=== PATIENT | male | born 1995 | race Caucasian/White ===

== ENCOUNTER 2024-06-29 15:58 | Inpatient (IN) | payer OTHER, SELFPAY ==
[2024-06-29] VITALS (10 sets, daily range): BP systolic 124–142; BP diastolic 78–91; BMI 21.1; BMI 20.1
--- NOTE | 2024-06-29 14:12 | ED.GENMED ---
History of Present Illness
General
Chief Complaint: Abnormal Lab Value
Time Seen by Provider: 06/29/24 14:01
History of Present Illness
History of Present Illness:
28-year-old male with history of chron's disease presents to the emergency department due to low hemoglobin on outpatient labs. Patient unfortunately had been managing his Crohn's with Remicade however lost insurance and was not able to continue to
receive infusions for several months. Reestablish care with new insurance and outpatient labs are obtained earlier this week showing hemoglobin 7.3. He reports 10-20 episodes of bowel movements daily with weight loss and general fatigue. Denies
any significant abdominal pain at this time
Past History
Past History
ED Past Medical History: Other (Crohns)
ED Past Surgical History: None
Social History
Tobacco: Non-smoker
Alcohol: None
Review of Systems
Review of Systems
Allergies reviewed?: Yes
All Other Systems: ROS reviewed and negative except as documented in HPI and ROS
Phy Exam
Physical Exam
Physical Exam:
GEN: Thin and pale, chronically ill-appearing, no immediate distress
HEENT: Oral mucosa moist, no scleral icterus
Cardiac: Regular rate
Lung: No respiratory distress, no tachypnea
Abdomen: Soft, nontender
MSK: No gross deformity or injuries
Skin: Good color, no pallor or jaundice, no rashes
Neuro: AO x3, moves all extremities freely
Psych: Calm, cooperative
Course
Orders/Labs/Results
Orders:
Orders
06/29/24 13:55
Type And Crossmatch Urgent
Complete Blood Count/With Diff Urgent
Comprehensive Metabolic Panel Urgent
06/29/24 Dinner
Regular
At Your Request: Full Participation
Does patient need a safe tray?: No
Oral Supplement (If unsure of flavor order apple or vanilla): Ensure Enlive Vanilla
Supplement Frequency: TID
06/29/24 15:18
ABO2 Routine
BBK Wristband Number:
06/29/24 15:23
MR Pelvis W/o & With Contrast Routine
Comment:
Reason For Exam: fistulizing large bowel Crohn's
Recent pill cam endoscopy?: No
06/29/24 15:26
Blood Bank Products [* Blood Bank Products] Urgent
Blood Bank Products: *Packed RBC Leuko(PRBC's)
Quantity: 1
Transfuse Today: Yes
Reason: Anemia
06/29/24 15:48
Admit/Transfer Patient As Directed
Co-Sign Provider:
Level of Care: Inpatient admission
Assign to:: Medical/Surgical
Physician / Group: Regino Russ
Diagnosis: Crohn's disease flare up
Reason for Hospitalization: Crohn's disease flare up
Expected length of stay greater than two midnights?: Yes
ELOS- Estimated Length of Stay in days: 3
I certify the patient meets the requirements for IP care: Yes
PRN Pain Medication Management As Directed
May give lesser potent ordered pain med per pt: Yes
preference::
Protocol:: Medication orders for pain may be administered in a
manner that supports deferring to patient preference
when the pt is:
- Requesting an ordered lesser potent pain medication.
Least to most potent pain medications are defined
as: acetaminophen < NSAID < tramadol < opioids
(morphine, oxycodone, hydromorphone).
- Requesting a lesser dose of the same medication IF
ORDERED.
- Requesting a less intrusive route of administration
if both routes are prescribed by the provider (PO <
IV).
06/29/24 15:49
Code Status As Directed
Resuscitation Status: Full Code
06/29/24 16:18
Calprotectin, Fecal [S] Urgent
Date Specimen was Collected: 06/29/24
Time Specimen was Collected: 16:11
STOOL [C difficile Antigen & Toxins] Urgent
LAVERNE Source: Feces/Stool
Specimen Description:
Date Specimen was Collected: 06/29/24
Time Specimen was Collected: 16:11
Stool Culture Urgent
LAVERNE Source: Feces/Stool
Specimen Description:
Date Specimen was Collected: 06/29/24
Time Specimen was Collected: 16:11
Stool For WBC Urgent
LAVERNE Source: Feces/Stool
Specimen Description:
Date Specimen was Collected: 06/29/24
Time Specimen was Collected: 16:11
06/29/24 16:54
Acetaminophen [Tylenol] 650 mg PO Q4HPRN PRN
Lactated Ringers [Lr] 1,000 ml IV 100 mls/hr
Ondansetron Injectable [Zofran] 4 mg IV Q6HPRN PRN
06/29/24 16:54
Activity As Directed
Activity Level: As Tolerated
Vital Signs As Directed
Frequency: Per unit guidelines
DX Deep Vein Thrombosis Video Routine
06/29/24 18:00
Enoxaparin Sodium [Lovenox] 40 mg SC QPM
06/30/24 06:00
Basic Metabolic Panel IN AM
Complete Blood Count/No Diff IN AM
06/30/24 14:00
Ferric Gluconate [Ferrlecit] 125 mg 0.9% Sodium Chloride 100 ml [Nss] 100 ml IV DAILY@1400
07/01/24 06:00
Basic Metabolic Panel IN AM
Complete Blood Count/No Diff IN AM
Abnormal Lab Results
06/29/24
13:55
RBC 3.36 L 10^6/uL
(4.70-6.10)
Hgb 7.3 L g/dL
(13.0-18.0)
Hct 24.4 L %
(39.0-52.0)
MCV 72.6 L fL
(80.0-94.0)
MCH 21.7 L pg
(27.0-31.0)
MCHC 29.9 L g/dL
(33.0-37.0)
RDW 18.3 H %
(11.5-14.5)
Plt Count 877 H 10^3/uL
(130-400)
Abs Immat Gran (auto) 0.1 H 10^3/uL
(0-0.05)
Absolute Lymphs (auto) 0.8 L 10^3/uL
(1.2-3.4)
Absolute Monos (auto) 0.9 H 10^3/uL
(0.1-0.6)
Immature Gran % 0.9 H %
(0-0.5)
Lymphocytes % 14.6 L %
(20.5-51.1)
Monocytes % 16.0 H %
(1.7-9.3)
Sodium 134 L mmol/L
(135-145)
Chloride 97 L mmol/L
(98-107)
Carbon Dioxide 33 H mmol/L
(22-30)
BUN 6 L mg/dl
(9-20)
Calcium 7.8 L mg/dl
(8.4-10.2)
AST 14 L U/L
(17-59)
Total Protein 5.7 L g/dl
(6.3-8.2)
Albumin 2.3 L g/dl
(3.5-5.0)
Crossmatch IS Only See Detail
06/29/24 13:55
06/29/24 13:55
Vital Signs
Initial and Last Documented VS:
Initial Vital Signs
Temp Pulse Resp BP Pulse Ox
98.2 F 111 20 136/90 100
06/29/24 13:18 06/29/24 13:18 06/29/24 13:18 06/29/24 13:18 06/29/24 13:18
Last Documented Vital Signs
Temp Pulse Resp BP Pulse Ox
98.0 F 119 17 142/91 100
06/29/24 17:13 06/29/24 17:13 06/29/24 17:13 06/29/24 17:13 06/29/24 18:11
MDM/Problems Addressed
MDM/Problems Addressed:
Patient will be admitted to the hospitalist service with GI consultation for further management of his Crohn's. Stool studies are ordered as this will dictate potential need for avoidance of IV steroids. Imaging is not obtained in the emergency
department as GIs preference would be for MRI which can be done on an inpatient basis
*Critical Care Note
Total Time (30-74mins, 75-104mins- exclusive of procedures): Not Applicable
ED Attending Note
-
Portions of this chart may have been created with voice recognition software.� Occasional wrong word or��sound alike� substitutions may have occurred due to the inherent limitations of voice recognition software.
Discharge Plan
Departure
Patient Disposition: Admit
Date of Disposition: 06/29/24
Time of Disposition: 15:28
Admit to: Med/Surg
Presentation/result/management discussed w/ accepting MD/DO: Hospitalist
Discharge Problem:
Crohn's colitis, Iron deficiency anemia
Interventions
Interventions:
*Risk Screen - Suicide Last Done: 06/29/24 17:00
*General Assessment Last Done: 06/29/24 13:18
*Neglect/Abuse Screening Last Done: 06/29/24 13:18
ED- Fall Risk Assessment Last Done: 06/29/24 14:11
*ED COVID-19 Vaccine History Last Done: 06/29/24 17:00
*Nursing Disposition Last Done: 06/29/24 16:44
Discharge Date and Time
Discharge Date/Time: 06/29/24 16:44
[2024-06-29 14:16] LABS: % Basophils 0.5 % (0-2); % Eosinophils 1.7 % (0-6); % Immature Granulocytes 0.9 % (0-0.5); % Lymphocytes 14.6 % (20.5-51.1); % Neutrophils 66.3 % (42.2-75.2); Absolute Eosinophils 0.1 10^3/uL (0-0.7); Absolute Immature Granulocytes 0.1 10^3/uL (0-0.05); Absolute Lymphocytes 0.8 10^3/uL (1.2-3.4); Absolute Monocytes 0.9 10^3/uL (0.1-0.6); Absolute Neutrophils 3.8 10^3/uL (1.4-6.5); Hematocrit 24.4 % (39.0-52.0); Hemoglobin 7.3 g/dL (13.0-18.0); Mean Corp Hgb Conc. 29.9 g/dL (33.0-37.0); Mean Corpuscular Hgb 21.7 pg (27.0-31.0); Mean Corpuscular Volume 72.6 fL (80.0-94.0); Mean Platelet Volume 7.7 fL (7.4-10.4); Nucleated Red Blood Cells % 0 % (-); Platelet Count 877 10^3/uL (130-400); Red Blood Cell Count 3.36 10^6/uL (4.70-6.10); Red Cell Dist. Width 18.3 % (11.5-14.5); White Blood Cell Count 5.8 10^3/uL (4.8-10.8)
[2024-06-29 14:38] LABS: ALT (SGPT) 12 U/L (0-50); AST (SGOT) 14 U/L (17-59); Albumin 2.3 g/dl (3.5-5.0); Alkaline Phosphatase 109 U/L (38-126); Blood Urea Nitrogen 6 mg/dl (9-20); Calcium 7.8 mg/dl (8.4-10.2); Carbon Dioxide 33 mmol/L (22-30); Chloride 97 mmol/L (98-107); Estimated Creatinine Clearance > 125 ml/min; Glucose 83 mg/dl (70-99); Potassium 3.8 mmol/L (3.5-5.1); Sodium 134 mmol/L (135-145); Total Bilirubin 0.2 mg/dl (0.2-1.3); Total Protein 5.7 g/dl (6.3-8.2); eGFR > 60.00
--- NOTE | 2024-06-29 14:40 | CON.GI ---
Addendum entered and electronically signed by Sergio Najera MD 06/29/24 16:14:
I saw and examined the patient.
The [employer]ONWE[employer] ATTORNEY or PA's note was reviewed and I agree with the note.
Comment: 28yo male with hx Crohn's colitis and history perianal fistula who was on remicade until December this year, but stopped due to insurance reasons. He has been passing 10-20 BMs daily, loose with some flecks of blood. He was seen in the
office today with Dr Hale and sent to ER due to his severe symptoms. His last colonoscopy in March 2022 showed perianal fistula, mild L sided colitis.
REC:
Check stool c diff, culture, calpro. If negative for infection, start steroids
He has been arranged for OP infliximab
He has extensive perianal Crohn's disease with severe deformity from fistulizing disease, induration, skin irritation
Check MRI pelvis
He may need diverting colostomy if he does not respond to medical rx, which I reviewed with him
Start IV iron for anemia. Transfuse prn
Original Note:
Consultation
-
Date/Time Consultation Requested: 06/29/24
Date/Time Consultation Performed: 06/29/24 @ 14:40
Requesting Provider: Dr. Hale
Performing Provider: NADIA Anand; Dr. Sergio Najera
Reason for Consultation: Crohn's flare, severe anemia
Medical History
Chief Complaint / HPI
Chief Complaint: abnormal labs, sent by GI office
History of Present Illness:
The patient is a 28-year-old male with a past medical history significant for large bowel Crohn's disease with history of perirectal fistula previously on Remicade, iron deficiency anemia, who presents to the ER as directed by Dr. Hale from the GI
office due to severe iron deficiency anemia and suspected severe Crohn's flare. Upon review of office records, the patient was initially diagnosed at age 26 with prior workup revealing Crohn's disease of the left colon with perianal fistula with
Dr. Hale of our practice. He had been started on Remicade which he was on from September 2023 to December 2023, but unfortunately lost insurance and did not continue with care. He had prior small bowel capsule in July 2022 which did not show any
evidence of small bowel involvement. He was last seen in our office in August 2023. He had a colonoscopy in March 2022 which showed a perirectal fistula with a normal TI and normal biopsies with normal appearance of the right colon, but mild
inflammation of the descending colon, moderate diffuse erythema of the sigmoid colon and rectum, with path consistent with Crohn's. Fecal calprotectin in July 2023 was 979. Upon evaluation in the GI office today he was found to have severe
anemia from labs on 06/26 and concern for ongoing inflammatory state, therefore was referred to the ER for further evaluation. He reports he has had lapses of health insurance, therefore was unable to continue on Remicade. He reports that since
being off Remicade he has had fecal urgency and incontinence with anywhere from 10-20 bowel movements in a 24-hour period. He does admit to nocturnal awakenings with frequency of stooling at night, although sometimes is only a small amount of mucus
that comes out. He reports losing about 30 pounds over the past year but feels his weight has plateaued at this point. He does admit to occasional nausea and vomiting but this is rare. He denies any abdominal pain. He does admit to pain at the
rectal area and reports that at times he can feel lesions that can drain liquid. He reports that on occasion he will notice some bright red blood specks in his stool, but denies any overt hematochezia. He reports that he has no control of his
rectal sphincter and does have to wear a diaper due to this. He will also notice some purulent drainage as well. He reports that he drinks an Ensure every morning and tries to eat normally although does try to avoid roughage. He admits to various
rashes on his skin but does not see a [employer] ax consultant regularly. He denies any oral sores or joint pains. He denies any blood thinners or NSAID use. He takes an iron pill when he remembers and also started on vitamin B12 3 days ago. He admits to
family history of colon cancer of his maternal grandfather. Outpatient labs done from 06/26 revealed a severe microcytic anemia with hemoglobin of 7.3 and MCV of 75. Platelet count was 2043. Other pertinent lab findings include glucose 118,
creatinine 0.67, calcium 7.6, total protein 5.5, albumin 2.0, serum iron 8, iron saturation 9, vitamin B12 846, folic acid 10, TB Gold negative, hepatitis B surface antibody reactive indicating immunity, vitamin D level 27.5, ESR 37, CRP 122,
ferritin 337. Repeat labs in the ER here reveal similar findings.
Past Medical History
Past Medical History: Other (Crohn's colitis (left side, rectum) previously on Remicade, perianal fistula, iron deficiency anemia)
Past Surgical History: None
Social History
Tobacco: Non-Smoker
Alcohol: Other (Rare)
Drug: None
Personal:
Living: With Family
Family History
Family History: Reviewed & Not Pertinent
Allergies / Home Medications
Allergy/AdvReac Type Severity Reaction Status Date / Time
No Known Allergies Allergy Unverified 06/03/23 13:37
�Medication �Instructions �Recorded
cephalexin 250 mg capsule 250 mg PO QID 10 days #40 caps 06/03/23
oxycodone-acetaminophen 5 mg-325 1 tab PO Q6HPRN PRN pain #7 tabs 06/03/23
mg tablet (Percocet)
sulfamethoxazole 800 1 tab PO BID 10 days #20 tabs 06/03/23
mg-trimethoprim 160 mg tablet
(Bactrim DS)
Review of Systems
-
History Source: Patient and Family
Constitutional: Reports Weight Loss, Fatigue and Sleep Disturbance
EENT: Reports No Symptoms
Respiratory: Reports No Symptoms
Cardiac: Reports No Symptoms
Abdomen/GI: Reports Diarrhea and Other (purulent drainage from rectum, severe excoriated )
: Reports No Symptoms
Musculoskeletal: Reports No Symptoms
Skin: Reports No Symptoms
Neurological: Reports No Symptoms
Vital Signs
Temp Pulse Resp BP Pulse Ox
98.2 F 101 18 134/90 100
06/29/24 13:18 06/29/24 14:15 06/29/24 14:15 06/29/24 14:00 06/29/24 14:15
Physical Exam
Exam
General: Well Developed and Other (pale, thin appearing male in NAD)
HEENT: Normocephalic, Anicteric and Moist Mucous Membranes
Respiratory: Clear
Cardiac: S1/S2 and Regular Rhythm
GI: Soft, Non Tender, Non Distended and Normal Bowel Sounds
Rectal: Other
Musculoskeletal: Edema (+2 pitting edema bilaterally)
Skin: Warm
Neuro: Awake, Alert and Oriented
Psych: Calm
Results
WBC 5.8 10^3/uL (4.8-10.8) 06/29/24 13:55
Hgb 7.3 g/dL (13.0-18.0) L 06/29/24 13:55
Hct 24.4 % (39.0-52.0) L 06/29/24 13:55
MCV 72.6 fL (80.0-94.0) L 06/29/24 13:55
Plt Count 877 10^3/uL (130-400) H 06/29/24 13:55
Absolute Neuts (auto) 3.8 10^3/uL (1.4-6.5) 06/29/24 13:55
Sodium 134 mmol/L (135-145) L 06/29/24 13:55
Potassium 3.8 mmol/L (3.5-5.1) 06/29/24 13:55
Chloride 97 mmol/L (98-107) L 06/29/24 13:55
Carbon Dioxide 33 mmol/L (22-30) H 06/29/24 13:55
BUN 6 mg/dl (9-20) L 06/29/24 13:55
Creatinine 0.7 mg/dL (0.7-1.3) 06/29/24 13:55
Calcium 7.8 mg/dl (8.4-10.2) L 06/29/24 13:55
Total Bilirubin 0.2 mg/dl (0.2-1.3) 06/29/24 13:55
AST 14 U/L (17-59) L 06/29/24 13:55
ALT 12 U/L (0-50) 06/29/24 13:55
Alkaline Phosphatase 109 U/L (38-126) 06/29/24 13:55
Prior GI Procedures:
EGD: none on file
Colonoscopy: 03/2022 Dr. Hale: Yuli-rectal fistula seen on digital exam. The examined portion of the ileum was normal. Biopsied. Mild inflammation was found in the descending colon suspected secondary to Crohn's disease. Biopsied. Diffuse moderate
mucosal changes were found in the sigmoid colon suspected secondary to Crohn's disease. Biopsied. The cecum, ascending and transverse colon appeared
normal. Four biopsies were obtained in the transverse colon, in the ascending colon and in the cecum.
Assessment / Plan
-
The patient is a 28-year-old male with a past medical history significant for large bowel Crohn's disease with history of perirectal fistula previously on Remicade, iron deficiency anemia, who presents to the ER as directed by Dr. Hale from the GI
office due to severe iron deficiency anemia and suspected severe Crohn's flare. He has been off Remicade for over a year given difficulty with insurance. He has had ongoing GI symptoms including up to 10-20 bowel movements a day, with intermittent
streaks of blood but primarily with fecal incontinence and inability to control his anal sphincter. He also has intermittent malodorous drainage likely secondary to perirectal fistula.
Problem list:
-Crohn's colitis flare with prior perianal fistula, Off biologics
-severe microcytic anemia
-hx JEMMA
-hypoalbuminemia
-weight loss
-elevated platelets
-Vitamin D deficiency
Recommendations
-Current symptoms likely 2/2 poorly managed Crohn's colitis, currently with severe ongoing inflammation with fistulizing disease (OP CRP and ESR elevated)
-Anemia is 2/2 poorly managed disease state and malnutrition
-Obtain stool studies to rule out infectious etiology, if negative will initiate IV steroids
-Obtain MRI of the pelvis to further characterize disease state
-To consider CRS evaluation pending above
-Can start on CLD for now. Advised on low residue/low lactose diet when diet is advanced to allow for healing
-Will initiation IV iron as he has no overt bleeding, will hold on blood transfusion. Discussed with Dr. Najera
-IV fluids
-Elevated plt and ferritin is due to acute phase reactant
-Further management pending above
-
-
Thank you for consultation and allowing me to participate in the patient's care. Please call the vision specialist GI physician during the after hours with any questions or concerns.
--- NOTE | 2024-06-29 15:50 | HPS.HSE ---
Family Physician
-
Family Physician: NOT KNOW UNKNOWN - PT DOES
Chief Complaint
-
abdominal pain, diarrhea
History of Present Illness
Patient is a 28-year-old male with past medical history of Crohn's disease diagnosed in was sent to ER for having uncontrolled symptoms of diarrhea/lower abdominal discomfort nausea and vomiting. Patient has been on treatment with infliximab for
last 8 months as patient lost insurance coverage. Patient was seen by primary GI in the office and in light of ongoing uncontrolled symptoms was sent into ER for further evaluation. Patient stated of having anywhere between 10-20 bowel movements
every day with some minor bleeding/clot once in well. Patient also have some abdominal bloating/discomfort although does not describe as pain. Also have associated episodic nausea and vomiting. Patient also has been losing weight and was weighing
230 pound at the time of diagnosis, currently patient weighing 150 pounds. Patient have subjective mild fever.
Medical History
Past Medical History
Past Medical History: Reports Other
Additional Past Medical History:
Crohn's disease
Past Surgical History: Reports Other
Social History
Tobacco: Non-smoker
Alcohol: Occasional
Drug: None
Living: With Family
Family History
Family History: Not pertinent
Allergies / Home Medications
Allergies reflects when Allergies were last updated in [employer]
Home Medications with original date entered in [employer]
Allergy/Medication List:
Allergies
Allergy/AdvReac Type Severity Reaction Status Date / Time
No Known Allergies Allergy Unverified 06/03/23 13:37
Home Medications
cyanocobalamin (vitamin B-12) 1 tab PO DAILY 06/29/24
ferrous sulfate 325 mg (65 mg iron) tablet 325 mg PO DAILY 06/29/24
Review of Systems
-
A 12 point ROS was completed and negative except as noted: Yes
Physical Exam
Vital Signs
Vital Signs
Temp Pulse Resp BP Pulse Ox
98.2 F 107 14 134/83 100
06/29/24 13:18 06/29/24 15:15 06/29/24 15:15 06/29/24 15:00 06/29/24 15:15
Physical Exam
General: No Apparent Distress
HEENT: Moist mucous membranes and Atraumatic
Respiratory: Clear
Cardiac: S1/S2, Regular Rhythm and Tachycardia; No Murmur
GI: Soft, Non Tender and Non Distended; No Organomegaly
Rectal: Deferred by Provider
Musculoskeletal: No Edema
Skin: Rash (Diffuse macular rash on chest/arm/leg)
Neuro: Awake, Alert, Oriented and Nonfocal/grossly intact
Laboratory Results
-
06/29/24 13:55
06/29/24 13:55
Laboratory Results
Total Bilirubin 0.2 mg/dl (0.2-1.3) 06/29/24 13:55
AST 14 U/L (17-59) L 06/29/24 13:55
ALT 12 U/L (0-50) 06/29/24 13:55
Alkaline Phosphatase 109 U/L (38-126) 06/29/24 13:55
Data Reviewed
-
Lab Data: Labs Reviewed by me, Discussed with Patient and Discussed with Family
Impression/Plan
-
1. Crohn's disease flare up
-Dx in and have been on Remicade in past, currently off of it for last 8mos due to insurance issues
-currently complaining having 10-20 BM/day with some blood
-sev martha-anal disease on exam and GI have ordered MRI Pelvis to further to evaluate
-Getting stool test for bacteria/ova-parasite
-Maintain on IV LR/anti-emetics
-GI following and patient will be started on steroids if stool test is negative
2. Presumed Psoriasis
-Presuming on clinical exam with dry scaly rash
-non pruritic in nature
-Patient CD makes patient prone to get psoriasis also Infliximab therapy can paradoxical activation of psoriatic lesions
-Should follow up with dermatology in office
3. Iron Def anemia
-Reported ferritin ~ 300 but SI saturation 8%
-Patient getting IV ferlicit therapy
4. Thrombocytosis
-hemoconcentration and chronic inflammatory state related
5. Metabolic alkalosis
-related to volume depletion presumably
-monitor post IV hydration
6. Hyponatremia
-mild, monitor
7. Elevated AST
-monitor
8. Mod PCM
-Patient lost 80lbs in 2 years approx from diagnosis
-maintain on ensure with meal
DVTPPx- lovenox
Full code
Total time spent : 78 mins
I personally saw and examined the patient.
I have reviewed all diagnostic interpretations and treatment plans as written.
Time includes patient management by me, time spent at the patients bedside, time to review lab and imaging results, discussing patient care, documentation in the medical record, and time spent with the family or caregiver and discussing care plan
with RN/Consultants.
[2024-06-29] MEDS: LOVENOX SC (17:42)
--- NOTE | 2024-06-29 17:56 | PTCARENOTE ---
Received pt from ED, pt ambulated from stretcher to bed, VSS, pt resting comfortably in bed at this time.
[2024-06-29] MEDS: TYLENOL 650 MG PO (21:33)
[2024-06-29] MEDS: TYLENOL 325 MG PO (22:07)
[2024-06-30] VITALS (47 sets, daily range): BP systolic 89–127; BP diastolic 40–82; PULSE 2; BMI 20.6
[2024-06-30] MEDS: LR IV ×2 (01:47→15:36)
[2024-06-30] MEDS: LR 1000 IV ×3 (01:48→23:47)
--- NOTE | 2024-06-30 03:35 | PTCARENOTE ---
Pt received 1 unit of PRBC this shift, no adverse effects noted. VSS
[2024-06-30 09:02] LABS: Hematocrit 24.7 % (39.0-52.0); Hemoglobin 7.8 g/dL (13.0-18.0); Mean Corp Hgb Conc. 31.6 g/dL (33.0-37.0); Mean Corpuscular Hgb 23.2 pg (27.0-31.0); Mean Corpuscular Volume 73.5 fL (80.0-94.0); Mean Platelet Volume 7.7 fL (7.4-10.4); Platelet Count 775 10^3/uL (130-400); Red Blood Cell Count 3.36 10^6/uL (4.70-6.10); Red Cell Dist. Width 18.8 % (11.5-14.5); White Blood Cell Count 6.2 10^3/uL (4.8-10.8)
[2024-06-30] MEDS: CIPRO 400 MG 200 IV ×2 (09:10→22:20)
[2024-06-30] MEDS: TYLENOL 650 MG PO (09:13)
[2024-06-30 09:28] LABS: Blood Urea Nitrogen 6 mg/dl (9-20); Calcium 7.4 mg/dl (8.4-10.2); Carbon Dioxide 31 mmol/L (22-30); Chloride 98 mmol/L (98-107); Estimated Creatinine Clearance > 125 ml/min; Glucose 74 mg/dl (70-99); Potassium 3.5 mmol/L (3.5-5.1); Sodium 134 mmol/L (135-145); eGFR > 60.00
--- NOTE | 2024-06-30 09:38 | W.PN.GI.CBS2 ---
Addendum entered and electronically signed by Natali Fontanez MD 06/30/24 13:09:
I saw and examined the patient.
The TIMBER GRADER or PA's note was reviewed and I agree with the note.
Comment:
Pt hungry with only mild intermittent abd pain. Does have diarrhea and Fecal incontinence
abd: soft
impression:
perianal fistula
crohns
FI
fevers
plan:
Colorectal surgery eval in OR today
IV antibiotics
f/u stool studies and MRI
Original Note:
Today's Communication / Plan
-
IV antibiotics. Colorectal surgery evaluation, with plans for OR this afternoon pending OR availability. Follow stool culture. Fecal calprotectin pending. MRI of the pelvis pending. Follow-up on testing
Assessment / Plan
-
The patient is a 28-year-old male with a past medical history significant for large bowel Crohn's disease with history of perirectal fistula previously on Remicade, iron deficiency anemia, who presents to the ER as directed by Dr. Hale from the GI
office due to severe iron deficiency anemia and suspected severe Crohn's flare. He has been off Remicade for over a year given difficulty with insurance. He has had ongoing GI symptoms including up to 10-20 bowel movements a day, with intermittent
streaks of blood but primarily with fecal incontinence and inability to control his anal sphincter. He also has intermittent malodorous drainage likely secondary to perirectal fistula. S/p 1 unit of PRBC hgb improved 7.3-->7.8.
06/30/24: Fevers overnight up to 101.9. CRS evaluation requested.
Problem list:
-Crohn's colitis flare with prior perianal fistula, Off biologics
-severe microcytic anemia
-hx JEMMA
-hypoalbuminemia
-weight loss
-elevated platelets
-Vitamin D deficiency
Recommendations
-Current symptoms likely 2/2 poorly managed Crohn's colitis, currently with severe ongoing inflammation with fistulizing disease (OP CRP and ESR elevated), now with fevers concerning for infection (fistula v abscess).
---Started on Cipro and Flagyl
-CRS evaluation requested. Discussed with colorectal surgery physician assistant professor surgical technology with plan for evaluation of the anus and rectum under anesthesia for possible further intervention. He has been made n.p.o.
-Continue to trend H&H. Will start on IV iron today, he is status post 1 unit of packed red blood cell
-C. difficile, Giardia, crypto negative. Stool WBCs showing many white blood cells. Stool culture pending
-Awaiting MRI of the pelvis
-IV fluids
-Ordered blood cultures and UA/urine culture
-Given concern for infection, hold off on IV steroids
-Further management pending above
Discussed case with Dr. Fontanez and Dr. Russ
Subjective
Subjective
Date of Service: June 30, 2024
The patient seen and examined at bedside. He was evaluated by colorectal surgery and is pending exam under anesthesia to evaluate his anal/rectal fistulizing disease state. MRI of the pelvis is also pending. Hemoglobin is improved to 7.8 status
post 1 unit packed red blood cells.
Objective
Data Reviewed
Laboratory Data:
Laboratory Results
06/30/24 08:33
06/30/24 08:33
Laboratory Results
Total Bilirubin 0.2 mg/dl (0.2-1.3) 06/29/24 13:55
AST 14 U/L (17-59) L 06/29/24 13:55
ALT 12 U/L (0-50) 06/29/24 13:55
Alkaline Phosphatase 109 U/L (38-126) 06/29/24 13:55
Vital Signs and I&O:
Vital Signs
Temp Pulse Resp BP Pulse Ox
100.5 F H 96 18 114/74 99
06/30/24 07:00 06/30/24 07:00 06/30/24 07:00 06/30/24 07:00 06/30/24 07:00
I&O
06/29/24 06/30/24 07/01/24
06:59 06:59 06:59
Intake Total 250 / 250
Balance 250 / 250
Physical Exam
Physical Exam
HEENT: Anicteric
Cardiology: S1 and S2 (Regular rate and rhythm)
Pulmonary: Clear
GI: Soft, Non Distended, Non Tender and Normal Bowel Sounds
Extremities: No Edema
[2024-06-30] MEDS: FLAGYL 500 MG 100 IV ×2 (10:41→18:50)
--- NOTE | 2024-06-30 11:03 | CON.CRS ---
Consultation
-
Date/Time Consultation Requested: 07/01/2024, 09:00
Date/Time Consultation Performed: 07/01/2024, 09:20
Requesting Provider: Liss Mitchell NP
Performing Provider: Kaz Diaz MD
Reason for Consultation: perianal abscesses
Medical History
-
Chief Complaint: Abdominal pain
History of Present Illness:
28-year-old male, with a history of Crohn's disease, was sent to the ER from his office appointment with Dr. Hale due to lower abdominal pain, nausea, and vomiting. The patient has been on infliximab from August 2023 until December 2023 when he lost
insurance coverage. Typically he has 10-20 bowel movements a day with some minor bleeding once in a while. He was seen in the office in [address] Diaz due to perianal drainage and discomfort. He has been following up with gastroenterology since.
The patient states it is hard to say if he improved with Remicade. His bowel movements are typically anywhere from solid to water like. This has been going on for the past 2 years. He has no abdominal pain usually. He has lost 30 pounds since he
stopped Remicade in December. He is unsure if he had fevers at home but definitely felt chills. He has a bad smell around his anal area. His hemoglobin was 7.3 on admission and he received a blood transfusion. We have been consulted for further
surgical recommendations.
Past Medical History
Past Medical History: Other (Crohn's disease, iron deficiency anemia)
Social History
Tobacco: Non-Smoker
Alcohol: Occasional
Drug: None
Family History
Family History: Reviewed & Not Pertinent
Allergies / Home Medications
Allergy/AdvReac Type Severity Reaction Status Date / Time
No Known Allergies Allergy Unverified 06/03/23 13:37
�Medication �Instructions �Recorded �Confirmed �Type
cyanocobalamin (vitamin B-12) 1 tab PO DAILY Supplement 06/29/24 06/29/24 History
ferrous sulfate 325 mg (65 mg 325 mg PO DAILY Supplement 06/29/24 06/29/24 History
iron) tablet
Review of Systems
-
History Source: Patient
Constitutional: Weight Loss and Chills
Abdomen/GI: Abdominal Pain and Bloody Stools
: Other (Mucus-like drainage from rectum)
A 10 point review of systems was completed, and was negative except as per HPI.
Physical Exam
Vital Signs
Temp 98.7 F 06/30/24 10:46
Pulse 96 06/30/24 07:00
Resp Rate 18 06/30/24 07:00
Blood pressure 114/74 06/30/24 07:00
SaO2 99 06/30/24 10:48
06/29/24 06/30/24 07/01/24
06:59 06:59 06:59
Actual Weight 68.946 kg
Body Mass Index (BMI) 20.1
Lab Results / Allergies
06/30/24 08:33
06/30/24 08:33
WBC 6.2 10^3/uL (4.8-10.8) 06/30/24 08:33
Hgb 7.8 g/dL (13.0-18.0) L 06/30/24 08:33
Hct 24.7 % (39.0-52.0) L 06/30/24 08:33
Plt Count 775 10^3/uL (130-400) H 06/30/24 08:33
Abs Immat Gran (auto) 0.1 10^3/uL (0-0.05) H 06/29/24 13:55
Neutrophils % 66.3 % (42.2-75.2) 06/29/24 13:55
Allergy/AdvReac Type Severity Reaction Status Date / Time
No Known Allergies Allergy Unverified 06/03/23 13:37
Physical Exam
General: Well Developed, Well Nourished and No Apparent Distress
GI: Soft, Non Tender and Non Distended
Rectal: Other (Multiple fistulas noted throughout the perianal area. The entire perianal area is severely excoriated and firm.)
Neuro: AO x 3
Assessment / Plan
-
Assessment: 28-year-old male with a known history of Crohn's disease and off of Remicade since December 2023 presents with abdominal pain, anemia, and mucus discharge from his perianal area
Plan:
-Given his extensive perianal disease and unable to perform a full exam at bedside, patient will require an exam under anesthesia with treatment of the perianal fistulas and probable drain placement. This was discussed at length with the patient
with Dr. Diaz at bedside.
-N.p.o. for possible OR later today
-MRI is pending, I have called them to have it done this morning prior to OR
-Communicated the above plan with gastroenterology
--- NOTE | 2024-06-30 11:27 | W.PN.HOSP.TC ---
Today's Communication/Plan
-
start abx
blood culture
f/u MRI pelvis
possible need of exploration of perianal disease under anesthesia
Assessment / Plan
Assessment / Plan
1. Crohn's disease flare up
-Dx in and have been on Remicade in past, currently off of it for last 8mos due to insurance issues
-currently complaining having 10-20 BM/day with some blood
-severe martha-anal disease on exam and GI have ordered MRI Pelvis to further to evaluate
-C-diff neg. bacterial culture/other test pending.
-Maintain on IV LR/anti-emetics
-Colorectal surgeon evaluated and planning to follow-up on MRI and possible further exploration of perianal disease under anesthesia in OR
2. Fever episode
-With untreated Crohn's concern of GI source
-bacterial culture ordered
-maintain on empiric cipro and flagyl
3. Presumed Psoriasis
-Presuming on clinical exam with dry scaly rash
-non pruritic in nature
-Patient CD makes patient prone to get psoriasis also Infliximab therapy can paradoxical activation of psoriatic lesions
-Should follow up with dermatology in office
4. Iron Def anemia
-Reported ferritin ~ 300 but SI saturation 8%
-Patient getting IV ferlicit therapy
5. Thrombocytosis
-hemoconcentration and chronic inflammatory state related
5. Metabolic alkalosis
-related to volume depletion presumably
-monitor post IV hydration
6. Hyponatremia
-mild, monitor
7. Elevated AST
-monitor
8. Mod PCM
-Patient lost 80lbs in 2 years approx from diagnosis
-maintain on ensure with meal
DVTPPx- lovenox
Full code
Case discussed with GI
Complex patient with high risk of further GI complication/sepsis
Total time spent 51-minute
Anticipated Discharge: 24 - 48 hours
Subjective/Interval History
-
Date of Service: June 30, 2024
resting comfortably in bed
have new onset fever last night
no nausea/vomiting
Objective Data
-
Labs:
Laboratory Results
06/30/24
08:33
WBC 6.2
Hgb 7.8 L
Hct 24.7 L
Plt Count 775 H
Sodium 134 L
Potassium 3.5
Chloride 98
Carbon Dioxide 31 H
BUN 6 L
Creatinine 0.7
Glucose 74
Calcium 7.4 L
Vital Signs:
Vital Signs
Temp Pulse Resp BP Pulse Ox
98.7 F 96 18 114/74 99
06/30/24 10:46 06/30/24 07:00 06/30/24 07:00 06/30/24 07:00 06/30/24 10:48
I&O
06/29/24 06/30/24 07/01/24
06:59 06:59 06:59
Intake Total 250 / 250
Balance 250 / 250
Review of Systems
-
Respiratory: Reports No Symptoms
Cardiac: Reports No Symptoms
Abdomen/GI: Reports No Symptoms
Physical Exam
-
General: No Apparent Distress and Comfortable
HEENT: Negative Oxygen
Respiratory: Clear to Auscultation
Cardiac: Regular Rhythm and S1/S2; Negative Murmur or Rub
GI: Soft, Nontender, Nondistended and Normal Bowel Sounds
Musculoskeletal: No Edema
Neuro: Awake, Alert, Oriented, No Motor Deficits and Nonfocal/Grossly Intact
Psych: Calm
[2024-06-30 13:27] LABS: Urine Albumin Negative (Neg - Trace); Urine Bilirubin Negative (Negative); Urine Character Clear (Clear); Urine Color Yellow; Urine Glucose Negative (Negative); Urine Ketone Negative (Negative); Urine Leukocyte Negative (Negative); Urine Nitrite Negative (Negative); Urine Occult Blood Negative (Negative); Urine Urobilinogen Negative (Neg - 1+)
[2024-06-30] MEDS: FERRLECIT 110 MG IV (14:02)
--- NOTE | 2024-06-30 16:13 | PTCARENOTE ---
Patient to OR; IVF capped, chart given to OR nurses.
--- NOTE | 2024-06-30 17:34 | CM ---
met with patient at bedide.patient lives with his and child in [facility] with [address],his bed and bath is on first level,he amb i and is I with his adl.he is not sure of his pcp since he changed insurance.he uses [facility] in [place].he
has no hx of vn orip rehab.
pmh:brynn,crohn's disease,vit d defiiency,weight loss,perianal fistula
patient is adm with abd pain,iv iron,ivf LR,iv cipro/iv flagyl,may need to explore anus and rectum in or.plan :home with no needs when stable for dc.
--- NOTE | 2024-06-30 18:12 | W.IMMPOSTOP ---
Surgical Immed Post Op Note
-
Primary Surgeon: Kaz Diaz MD
Assistants: Favian Mckeon MD and DION Rodriguez
Pre-op Diagnosis: Crohn's disease
Post-op Diagnosis: Same
Procedure Performed: Rectal exam under anesthesia, flexible sigmoidoscopy and insertion of seton drains (5)
Anesthesia Type: General via LMA
Specimen / Cultures: None
Estimated Blood Loss: 10cc
Complications: None
Operative Findings: Severe Crohn's disease of the distal sigmoid, rectum and anus
Multiple perianal fistulas
No abscesses
Five seton drains
Patient's updated.
[2024-06-30] MEDS: NEO-SYNEPHRINE 250 IV (18:24)
--- NOTE | 2024-06-30 20:30 | PTCARENOTE ---
Assumed care of pt from PACU, PT AAOx3, drowsy and moves all extremities, NSR 70's no edema, + pedals, bounding radials, EMERSON held pt MAP >65 bp stable, Lungs clear B/L throughout, shallow breaths, SATs 97% 2L NC, belly soft non tender, hypoactive
BS, bladder scanned for 394 pt due to void, tannish spotting on upper back and chest, surgical site dry and intact with blue silk sutures, 4x4 blood tinged with no new leaking, ABDs remain dry, LR infusing in LFA @ 100ml, pt able to make needs know,
pt reports no pain, call tolentino within reach, souse updated @ bedside, otherwise refer to documentation.
[2024-06-30 20:52] LABS: INR 1.27; PT 15.7 Sec (11.4-14.6)
[2024-06-30 20:53] LABS: APTT 46.4 Sec (23.4-35.0)
[2024-06-30 20:55] LABS: Blood Urea Nitrogen 5 mg/dl (9-20); Carbon Dioxide 27 mmol/L (22-30); Chloride 100 mmol/L (98-107); Estimated Creatinine Clearance > 125 ml/min; Glucose 90 mg/dl (70-99); Phosphorus 4.2 mg/dl (2.5-4.5); Potassium 3.5 mmol/L (3.5-5.1); Sodium 134 mmol/L (135-145); eGFR > 60.00
[2024-06-30 21:10] LABS: Hematocrit 24.8 % (39.0-52.0); Hemoglobin 7.7 g/dL (13.0-18.0); Mean Corpuscular Hgb 23.6 pg (27.0-31.0); Mean Corpuscular Volume 76.1 fL (80.0-94.0); Mean Platelet Volume 7.7 fL (7.4-10.4); Platelet Count 676 10^3/uL (130-400); Red Blood Cell Count 3.26 10^6/uL (4.70-6.10); Red Cell Dist. Width 18.7 % (11.5-14.5); White Blood Cell Count 10.9 10^3/uL (4.8-10.8)
[2024-06-30] MEDS: LOVENOX 40 MG SC (22:19)
[2024-06-30] MEDS: CALCIUM GLUCONATE 130 MG IV (23:38)
[2024-06-30] MEDS: KCL 160 MEQ IV (23:38)
[2024-07-01] VITALS (21 sets, daily range): BP systolic 101–134; BP diastolic 55–85; BMI 20.5
[2024-07-01] MEDS: FLAGYL 500 MG 100 IV (03:13)
[2024-07-01 04:09] LABS: Hematocrit 24.8 % (39.0-52.0); Hemoglobin 7.7 g/dL (13.0-18.0); Mean Corpuscular Hgb 22.7 pg (27.0-31.0); Mean Corpuscular Volume 73.2 fL (80.0-94.0); Mean Platelet Volume 7.9 fL (7.4-10.4); Platelet Count 726 10^3/uL (130-400); Red Blood Cell Count 3.39 10^6/uL (4.70-6.10); Red Cell Dist. Width 18.9 % (11.5-14.5); White Blood Cell Count 7.5 10^3/uL (4.8-10.8)
--- NOTE | 2024-07-01 04:09 | PTCARENOTE ---
systems reviewed, pt vitals stable through night, Sats 98 % NC removed, surgical dressings changed per order, pt denied pain all night, could sense pressure and temp at the surgical site but no pain, got pt up to BSC urinated a large amount with a
small liquid BM, pt able to make needs known, otherwise refer to documentation
[2024-07-01 04:33] LABS: Blood Urea Nitrogen 5 mg/dl (9-20); Calcium 8.1 mg/dl (8.4-10.2); Carbon Dioxide 27 mmol/L (22-30); Chloride 100 mmol/L (98-107); Estimated Creatinine Clearance > 125 ml/min; Glucose 104 mg/dl (70-99); Potassium 4.1 mmol/L (3.5-5.1); Sodium 136 mmol/L (135-145); eGFR > 60.00
[2024-07-01] MEDS: LR 1000 IV ×2 (08:11→21:37)
--- NOTE | 2024-07-01 08:20 | CON.ID ---
Consultation
-
Date/Time Consultation Requested: 07/01/2024 07:40
Date/Time Consultation Performed: 06/27/2024 08:08
Requesting Provider: Dr. Russ
Performing Provider: Dr. Myrick
Reason for Consultation: Crohn's disease; perirectal abscesses
Chief Complaint / Past History
Past History
Additional Past Medical History:
Crohn's disease
Past Surgical History: None
Additional Past Surgical History:
.
Allergy History:
No Known Allergies Allergy (Unverified 06/03/23 13:37)
Medications Reviewed: Yes
Current Antibiotics:
Ciprofloxacin
Metronidazole
Social History
Tobacco: Non-Smoker
Alcohol: None
Drug: None
Personal:
Living: With Family
Employment: Not Employed
Family History
Family History: Not Pertinent
Review of Systems
Vital Signs
Temp Pulse Resp BP Pulse Ox
97.4 F 79 22 116/71 100
07/01/24 08:10 07/01/24 06:30 07/01/24 06:30 07/01/24 06:30 07/01/24 08:10
Physical Exam
Physical Exam
Constitutional: No Acute Distress, Comfortable and Non-toxic
Eyes: No Conjunctival Hemorrhage and Sclera Anicteric
Oral: No Thrush and No Ulcers
Cardiovascular: Regular Rate and S1/S2; Negative S3/S4
Pulmonary: Clear; Negative Wheezes, Rales or Rhonchi
Gastrointestinal: Soft, Non Tender, Non Distended, Normal Bowel Sounds, No Rebound, No Guarding and Other (Dressings in place to the rectal area.)
Extremities: Edema (1+); Negative Cyanosis or Erythema
Neurological: Awake and Alert
Psychological: Calm
Lab / Diagnostic Study Results
07/01/24 03:24
07/01/24 03:24
Abs Immat Gran (auto) 0.1 10^3/uL (0-0.05) H 06/29/24 13:55
Absolute Neuts (auto) 3.8 10^3/uL (1.4-6.5) 06/29/24 13:55
Absolute Lymphs (auto) 0.8 10^3/uL (1.2-3.4) L 06/29/24 13:55
Absolute Monos (auto) 0.9 10^3/uL (0.1-0.6) H 06/29/24 13:55
Absolute Basos (auto) 0.0 10^3/uL (0-0.2) 06/29/24 13:55
Immature Gran % 0.9 % (0-0.5) H 06/29/24 13:55
Neutrophils % 66.3 % (42.2-75.2) 06/29/24 13:55
Lymphocytes % 14.6 % (20.5-51.1) L 06/29/24 13:55
Monocytes % 16.0 % (1.7-9.3) H 06/29/24 13:55
Eosinophils % 1.7 % (0-6) 06/29/24 13:55
Basophils % 0.5 % (0-2) 06/29/24 13:55
PT 15.7 Sec (11.4-14.6) H 06/30/24 20:35
INR 1.27 06/30/24 20:35
Microbiology Results
Micro:
06/29/24 22:40 Blood Culture - Preliminary
Blood/Venous No Growth in 24 hours- Final report to follow
06/29/24 16:18 Salmonella/Shigella Culture - Preliminary
Feces/Stool Culture in Progress
Campylobacter Culture - Preliminary
Culture in Progress
Shiga Toxin Test - Pending
Stool Leukocytes - Final
06/30/24 08:33 Blood Culture - Pending
Blood/Venous
06/29/24 16:18 C. difficile GDH Antigen & Toxins - Final
Feces/Stool Negative for toxigenic C.difficile
Imaging:
06/30/2024 Pelvic MRI with contrast: Very severe inflammatory proctocolitis in the setting of Crohn's disease. There is significant perianal soft tissue inflammation and enhancement, with extensive perianal fistulous disease, with numerous active
fistula tracts. Please see full dictation for additional detail.
Assessment / Plan
Severe Crohn's disease
Multiple perianal/perirectal fistulous tracts; status post OR and drain placement
Diarrhea secondary to above
Protein calorie malnutrition
Anemia
Recommendations:
Transition antibiotic coverage to Unasyn 3 g IV every 6 hours.
Monitor white count and temperature curve.
When improved clinical stability, can transition to Augmentin
Care Review
Plan reviewed with: Physician (Hospitalist)
--- NOTE | 2024-07-01 08:32 | CON.INTV ---
Consultation
Consultation Request
Date/Time Consultation Requested: 06/30/2024 - 1832
Date/Time Consultation Performed: 07/01/2024830
Requesting Provider: Dr. Barbour
Performing Provider: Dr. Still
Reason for Consultation: Hypotension on vasopressors
Medical History
-
Chief Complaint: Abdominal pain/diarrhea
History of Present Illness:
28-year-old male with a past medical history of Crohn's disease who presents with lower abdominal pain, nausea/vomiting and diarrhea. Patient was on infliximab for his Crohn's disease but then lost insurance. Patient sent into the ER from GI given
continued uncontrolled symptoms. He endorsed 10�20 bowel movements per day with minor bleeding/clots occasionally. Endorsed abdominal bloating/discomfort with episodic nausea/vomiting. Initially in the ER, he was afebrile to 98.2 �F, tachycardic
to 111, breathing at 20 breaths/min, BP 136/90 and saturating 100% on room air. Initial labs showed Hb 7.3, platelets 877, serum sodium 134, serum bicarbonate 33, and albumin level 2.3. Stool cultures were collected + blood cultures. Pelvic MRI
showed severe inflammatory proctocolitis with perianal soft tissue inflammation with numerous active perianal fistula tracts. He was initially admitted to Med-Surg under the hospitalist service, with GI + colorectal surgery consulted. Given his
severe proctocolitis with numerous perianal fistula tracts, he underwent flexible sigmoidoscopy with 5 seton drain insertions on the evening of 06/30. EBL was 10 cc with no immediate complications, however he was hypotensive postoperatively. He was
transferred to the ICU for closer monitoring, and critical care services consulted for additional management/recommendations.
When I saw the patient he was in bed, in no acute distress, denies shortness of breath or chest pain. [place] lightheaded this morning when he had a bowel movement. Otherwise he feels okay. Heart rate 74, breathing at 19 breaths/min, BP 122/78, and
saturating 100% on room air.
PMHx: Crohn's disease with history of perianal fistula, iron deficiency anemia
PSHx: Noncontributory
Past Medical History
Past Medical History: Other (Above as per HPI)
Past Surgical History: Other (Above as per HPI)
Social History
Tobacco: Non-smoker
Alcohol: Occasional
Drug: None
Personal:
Living: With Family
Family History
Family History: Reviewed & Not Pertinent
Allergies / Home Medications
Allergies
Allergy/AdvReac Type Severity Reaction Status Date / Time
No Known Allergies Allergy Unverified 06/03/23 13:37
Home Medications
�Medication �Instructions �Recorded �Confirmed �Last Taken �Type
cyanocobalamin (vitamin B-12) 1 tab PO DAILY Supplement 06/29/24 06/29/24 Unknown History
ferrous sulfate 325 mg (65 mg 325 mg PO DAILY Supplement 06/29/24 06/29/24 Unknown History
iron) tablet
Review of Systems
-
History Source: Patient
All other systems: Negative unless noted
Vitals / Labs / Diagnostic Testing
Vital Signs
Temp Pulse Resp BP Pulse Ox
97.4 F 74 18 121/75 100
07/01/24 08:10 07/01/24 08:00 07/01/24 08:00 07/01/24 08:00 07/01/24 08:10
Lab Data
07/01/24 03:24
07/01/24 03:24
Laboratory Results
06/30/24
20:35
PT 15.7 H
INR 1.27
APTT 46.4 H
Microbiology
06/29/24 16:18 Feces/Stool Salmonella/Shigella Culture - Final
No Salmonella, Shigella, Aeromonas or Plesiomonas species
isolated.
06/29/24 16:18 Feces/Stool Campylobacter Culture - Final
No Campylobacter species isolated.
06/29/24 16:18 Feces/Stool Stool Leukocytes - Final
06/30/24 08:33 Blood/Venous Blood Culture - Preliminary
No Growth in 24 hours- Final report to follow
06/29/24 22:40 Blood/Venous Blood Culture - Preliminary
No Growth in 24 hours- Final report to follow
06/29/24 16:18 Feces/Stool C. difficile GDH Antigen & Toxins - Final
Negative for toxigenic C.difficile
Diagnostic Testing:
Physical Exam
-
HEENT: Normocephalic and Anicteric
Cardiovascular: S1/S2
Respiratory: Clear, Wheeze (negative), Rales (negative), Rhonchi (negative) and Non-Labored Respirations
GI: Soft, Non Distended, Non Tender and Normal Bowel Sounds
Neurology: AO x 3 and Tremors (negative)
Skin: Warm and Dry
General: Respiratory Distress (negative) and Comfortable
Assessment
-
Assessment: 28-year-old male with a past medical history of Crohn's disease who presents with lower abdominal pain, nausea/vomiting and diarrhea. Patient was on infliximab for his Crohn's disease but then lost insurance. Patient sent into the ER
from GI given continued uncontrolled symptoms. He endorsed 10�20 bowel movements per day with minor bleeding/clots occasionally. Endorsed abdominal bloating/discomfort with episodic nausea/vomiting. Initially in the ER, he was afebrile to 98.2
�F, tachycardic to 111, breathing at 20 breaths/min, BP 136/90 and saturating 100% on room air. Initial labs showed Hb 7.3, platelets 877, serum sodium 134, serum bicarbonate 33, and albumin level 2.3. Stool cultures were collected + blood
cultures. Pelvic MRI showed severe inflammatory proctocolitis with perianal soft tissue inflammation with numerous active perianal fistula tracts. He was initially admitted to Med-Surg under the hospitalist service, with GI + colorectal surgery
consulted. Given his severe proctocolitis with numerous perianal fistula tracts, he underwent flexible sigmoidoscopy with 5 seton drain insertions on the evening of 06/30. EBL was 10 cc with no immediate complications, however he was hypotensive
postoperatively. He was transferred to the ICU for closer monitoring, and critical care services consulted for additional management/recommendations.
Chronic conditions BLOCK CUTTER: Crohn's disease with history of perianal fistula, iron deficiency anemia
Impression:
#Severe inflammatory proctocolitis with extensive perianal fistulous disease s/p flexible sigmoidoscopy + insertion of seton drains x 5 (POD #1)
#Postoperative hypotension likely due to anesthesia
#Anemia
#Thrombocytosis, likely reactive
#Crohn's disease with history of perianal fistula
Plan:
- Continue with IVF -currently on LR at 100 cc/hr
- Will place stop date on these IVF to avoid volume overload as he is tolerating full liquid diet
- ADAT
- BP now normalized --> maintain MAP>65
- Continue ABx with Unasyn - ID on board, recs appreciated
- Maintain SpO2 >90-94%
- Postoperative management as per colorectal surgery
- GI on board � recs appreciated
- Diet as per colorectal surgery
- Replete electrolytes with K>4, Mg>2
- Maintain euglycemia with goal BG 140-180
- prn nebulized bronchodilators � patient currently not bronchospastic
- Incentive spirometer
- DVT ppx: LMWH
Patient no longer hypotensive, not on vasopressors and is hemodynamically stable and feels better. Patient stable for downgrade out of ICU to telemetry. Salon Stylist/Pulmonary service will now sign off. Thank you for allowing us to be involved in
the care of this patient. Please reconsult if there are any additional questions/concerns, or if patient's respiratory status deteriorates.
Total time spent today was 55 minutes for this encounter. Time includes reviewing laboratory test/imaging results, reviewing pertinent medical records, obtaining and reviewing medical history, performing an appropriate exam, ordering medications,
tests and procedures. Time also includes documentation of this encounter, coordinating patient care and communicating with other healthcare professionals. Total time does not include separately billed tests performed on this date of service.
Data:
Pelvic MRI 06/30/2024:
Very severe inflammatory proctocolitis in the setting of Crohn's disease. Significant perianal soft tissue inflammation and enhancement with extensive perianal fistulous disease with numerous active fistula tracts that appear to be both
transsphincteric and intersphincteric in location with extension of multiple tracts into the perineal and bilateral gluteal soft tissues.
--- NOTE | 2024-07-01 08:36 | W.PN.HOSP.TC ---
Today's Communication/Plan
-
see note
transfer to med/surg
Assessment / Plan
Assessment / Plan
MRI pelvis
Very severe inflammatory proctocolitis in the setting of Crohn's disease. Significant perianal soft tissue inflammation and enhancement with extensive perianal fistulous disease with numerous active fistula tracts that appear to be both
transsphincteric and intersphincteric in location with extension of multiple tracts into the perineal and bilateral gluteal soft tissues.

1. Crohn's disease flare up
-Dx in and have been on Remicade in past, currently off of it for last 8mos due to insurance issues
-currently complaining having 10-20 BM/day with some blood
-C-diff neg. stool culture report prelim neg.
-Discussed with GI for possible need of steroids initiation, await input
2. Severe proctocolitis
-With untreated Crohn's concern of GI source
-bacterial culture ordered
-MRI pelvis report as above showing
-s/p Rectal exam under anesthesia, flexible sigmoidoscopy and insertion of seton drains x5 on 06/30
-ID evaluated and changed abx from cipro/flagyl to unasyn.
3. Presumed Psoriasis vs other CD related skin condition
-Presuming on clinical exam with dry scaly rash
-non pruritic in nature
-Patient CD makes patient prone to get psoriasis also Infliximab therapy can paradoxical activation of psoriatic lesions
-Should follow up with dermatology in office
4. Iron Def anemia
-Reported ferritin ~ 300 but SI saturation 8%
-Patient getting IV ferlicit therapy
5. Thrombocytosis
-hemoconcentration and chronic inflammatory state related
-maintain on dvt ppx at high risk with CD.
5. Metabolic alkalosis
-related to volume depletion presumably
-monitor post IV hydration
6. Hyponatremia
-mild, monitor
7. Elevated AST
-monitor
8. Mod PCM
-Patient lost 80lbs in 2 years approx from diagnosis
-maintain on ensure with meal
DVTPPx- lovenox
Full code
case discussed with GI/ID
Total time spent : 53 mins
Anticipated Discharge: > 48 hours
Subjective/Interval History
-
Date of Service: July 01, 2024
no abd pain/nausea/vomiting
was on vasopressors post op, now off of it
afebrile overnight
Objective Data
-
Labs:
Laboratory Results
06/30/24 07/01/24
20:35 03:24
WBC 10.9 H 7.5
Hgb 7.7 L 7.7 L
Hct 24.8 L 24.8 L
Plt Count 676 H 726 H
PT 15.7 H
INR 1.27
APTT 46.4 H
Sodium 134 L 136
Potassium 3.5 4.1
Chloride 100 100
Carbon Dioxide 27 27
BUN 5 L 5 L
Creatinine 0.6 L 0.6 L
Glucose 90 104 H
Calcium 7.0 L 8.1 L
Vital Signs:
Vital Signs
Temp Pulse Resp BP Pulse Ox
97.4 F 79 22 116/71 100
07/01/24 08:10 07/01/24 06:30 07/01/24 06:30 07/01/24 06:30 07/01/24 08:10
I&O
06/30/24 07/01/24 07/02/24
06:59 06:59 06:59
Intake Total 250 / 250 2860 / 2860
Output Total 180 / 180
Balance 250 / 250 2680 / 2680
Review of Systems
-
Respiratory: Reports No Symptoms
Cardiac: Reports No Symptoms
Abdomen/GI: Reports No Symptoms
Physical Exam
-
General: No Apparent Distress and Comfortable
HEENT: Negative Oxygen
GI: Soft, Nontender and Nondistended
Rectal: Other (Perianal inflammation, Seton drain in place)
Musculoskeletal: No Edema
Neuro: Awake, Alert, Oriented, No Motor Deficits and Nonfocal/Grossly Intact
Psych: Calm
[2024-07-01] MEDS: UNASYN IV ×3 (10:06→21:39)
[2024-07-01] MEDS: TYLENOL 650 MG PO (11:07)
--- NOTE | 2024-07-01 11:15 | PTCARENOTE ---
pt assisted to bathroom to have bm after which pt returned to bed, new dressings applied to anal/buttock drains/wounds. pt with minimal discomfort during dressing change, medicated as charted. pt aware of downgrade/tx to new room. report called
prior to transfer. belongings from room sent with pt.
--- NOTE | 2024-07-01 11:36 | W.PN.GS2 ---
Today's Communication / Plan
-
Continue IV antibiotics
Assessment / Plan
-
This is a 28-year-old male with known Crohn's disease and severe perianal fistulas. POD#1 rectal exam under anesthesia, flexible sigmoidoscopy and insertion of multiple seton drains (x 5)
Okay for full liquid diet, will advance as tolerated.
Continue antibiotics. Appreciate ID consult/recs
Will plan for sitz baths tomorrow.
Stable for floor from surgery perspective.
All questions answered, patient agreeable to plan of care above.
Time Spent
Total Time Spent with Patient (in minutes): 20
Subjective Data
-
Date of Service: July 01, 2024
Interval Events:
No acute events overnight. Slept well. Pain Controlled, but still uncomfortable. Denies Nausea/Vomiting, +bowel function. Tolerating liquid diet.
Objective Data
-
Intake and Output
06/30/24 07/01/07/02/24
06:59 06:59 06:59
Intake Total 250 / 250 2860 / 2960 470 / 470
Output Total 180 / 180
Balance 250 / 250 2680 / 2780 470 / 470
Intake:
Oral fluids 360 / 360
IV fluids (Total) 1500 / 1600 350 / 350
Lr 1,000 ml @ 100 mls/hr IV . 1000 / 1100 350 / 350
Q10H [facility] Rx#:[id number]
Normosol 500 / 500
IV piggybacks 1000 / 1000 120 / 120
Blood Product Amount Infused ( 250 / 250
mL)
Packed Rbc Leukoreduced Unit 250 / 250
[id number]
Output:
Urine, Voided 180 / 180
Other:
Number of approximated MODERATE 5
amounts of urine
Number of approximated LARGE 1
amounts of urine
Number of unmeasured liquid
stools
Rectum 1
Vital Signs
Temp Pulse Resp BP Pulse Ox
97.4 F 74 18 121/75 100
07/01/24 08:10 07/01/24 08:00 07/01/24 08:00 07/01/24 08:00 07/01/24 08:10
Lab Results
07/01/24 03:24
07/01/24 03:24
Calcium 8.1 mg/dl (8.4-10.2) L 07/01/24 03:24
Phosphorus 4.2 mg/dl (2.5-4.5) 06/30/24 20:35
Magnesium 2.0 mg/dl (1.6-2.3) 06/30/24 20:35
Total Bilirubin 0.2 mg/dl (0.2-1.3) 06/29/24 13:55
AST 14 U/L (17-59) L 06/29/24 13:55
ALT 12 U/L (0-50) 06/29/24 13:55
Alkaline Phosphatase 109 U/L (38-126) 06/29/24 13:55
Total Protein 5.7 g/dl (6.3-8.2) L 06/29/24 13:55
Albumin 2.3 g/dl (3.5-5.0) L 06/29/24 13:55
Physical Exam
-
GENERAL/NEURO: Awake, Alert, no distress
CHEST: Unlabored breathing on RA
ABDOMEN: Soft, Non-Tender, Non-Distended
Buttocks: Multiple setons in place, some mild residual erythema, no discharge, appropriately tender to palpation.
--- NOTE | 2024-07-01 12:31 | PTCARENOTE ---
Received pt from ICU with PCT at bedside, pt ambulated to new bed with no assistance, no c/o pain at this time, VSS, pt oriented to room, call tolentino within reach, pt resting comfortably in bed at this time.
[2024-07-01] MEDS: FERRLECIT 110 MG IV (14:04)
[2024-07-01] MEDS: LOVENOX 40 MG SC (17:21)
--- NOTE | 2024-07-01 18:16 | PTCARENOTE ---
Pt was stating that he was having discomfort in his stomach, said that he felt as though he wanted to try and go to the bathroom. PCT helped pt in the bathroom and pt became dizzy and felt like he was going to pass out, PCT got help of another PCT
and helped pt back to bed, BP upon transfer was 126/76, HR 93. Pt not feeling dizzy anymore now that he is back in bed, pain medication offered, pt resting in bed with at bedside now.
--- NOTE | 2024-07-01 22:00 | PTCARENOTE ---
Trace edema noted to patient's left hand; RN covering IV team notified and came to unit to assess; ok to use IV site in Left arm.
[2024-07-02] MEDS: UNASYN IV ×4 (04:19→22:09)
[2024-07-02 07:00] VITALS: BP 113/69
[2024-07-02 07:32] LABS: Blood Urea Nitrogen 6 mg/dl (9-20); Calcium 7.1 mg/dl (8.4-10.2); Carbon Dioxide 30 mmol/L (22-30); Chloride 98 mmol/L (98-107); Estimated Creatinine Clearance > 125 ml/min; Glucose 80 mg/dl (70-99); Potassium 3.9 mmol/L (3.5-5.1); Sodium 131 mmol/L (135-145); eGFR > 60.00
[2024-07-02 08:04] LABS: Hematocrit 22.5 % (39.0-52.0); Mean Corp Hgb Conc. 31.1 g/dL (33.0-37.0); Mean Corpuscular Hgb 23.4 pg (27.0-31.0); Mean Corpuscular Volume 75.3 fL (80.0-94.0); Platelet Count 699 10^3/uL (130-400); Red Blood Cell Count 2.99 10^6/uL (4.70-6.10); Red Cell Dist. Width 19.2 % (11.5-14.5); White Blood Cell Count 5.9 10^3/uL (4.8-10.8)
--- NOTE | 2024-07-02 09:36 | W.PN.GS2 ---
Today's Communication / Plan
-
Local wound care/sitz baths
Assessment / Plan
-
This is a 28-year-old male with known Crohn's disease and severe perianal fistulas.
POD#2 rectal exam under anesthesia, flexible sigmoidoscopy and insertion of multiple seton drains (x 5)
Wound healing complicated by fecal incontinence
Okay for regular diet
Continue antibiotics. Appreciate ID consult/recs
Will plan for sitz baths BID
Subjective Data
-
Date of Service: July 02, 2024
Patient seen and examined at bedside with Dr. Patrick. Gregies n/v. Passing stools but incontinent overnight, notes he has been prior to recent procedure as well.
Objective Data
-
Intake and Output
07/01/24 07/02/24 07/03/24
06:59 06:59 06:59
Intake Total 2860 / 2960 5960 / 5960
Output Total 180 / 180
Balance 2680 / 2780 5960 / 5960
Intake:
Oral fluids 360 / 360 2730 / 2730
IV fluids (Total) 1500 / 1600 2650 / 2650
Lr 1,000 ml @ 100 mls/hr IV . 1000 / 1100 450 / 450
Q10H [facility] Rx#:[id number]
Normosol 500 / 500
IV piggybacks 1000 / 1000 580 / 580
Output:
Urine, Voided 180 / 180
Other:
Number of approximated MODERATE 5 4
amounts of urine
Number of approximated LARGE 1 1
amounts of urine
Number of unmeasured liquid
stools
Rectum 1 1
Vital Signs
Temp Pulse Resp BP Pulse Ox
98.5 F 106 18 113/69 97
07/02/24 07:00 07/02/24 07:00 07/02/24 07:00 07/02/24 07:00 07/02/24 07:00
Lab Results
07/02/24 05:47
07/02/24 05:47
Calcium 7.1 mg/dl (8.4-10.2) L 07/02/24 05:47
Phosphorus 4.2 mg/dl (2.5-4.5) 06/30/24 20:35
Magnesium 2.0 mg/dl (1.6-2.3) 06/30/24 20:35
Total Bilirubin 0.2 mg/dl (0.2-1.3) 06/29/24 13:55
AST 14 U/L (17-59) L 06/29/24 13:55
ALT 12 U/L (0-50) 06/29/24 13:55
Alkaline Phosphatase 109 U/L (38-126) 06/29/24 13:55
Total Protein 5.7 g/dl (6.3-8.2) L 06/29/24 13:55
Albumin 2.3 g/dl (3.5-5.0) L 06/29/24 13:55
Physical Exam
-
GENERAL/NEURO: Awake, Alert, no distress
CHEST: Unlabored breathing on RA
ABDOMEN: Soft, Non-Tender, Non-Distended
Buttocks: Multiple setons in place, difficult to visualize as stool covering the area
--- NOTE | 2024-07-02 09:45 | W.PN.HOSP.TC ---
Today's Communication/Plan
-
1 U PRBC
hold ferlicit
diet per GI/GS
Assessment / Plan
Assessment / Plan
MRI pelvis
Very severe inflammatory proctocolitis in the setting of Crohn's disease. Significant perianal soft tissue inflammation and enhancement with extensive perianal fistulous disease with numerous active fistula tracts that appear to be both
transsphincteric and intersphincteric in location with extension of multiple tracts into the perineal and bilateral gluteal soft tissues.

1. Crohn's disease flare up
-Dx in and have been on Remicade in past, currently off of it for last 8mos due to insurance issues
-currently complaining having 10-20 BM/day with some blood
-C-diff neg. stool culture report prelim neg.
-Discussed with GI, holding steroids for now. Will defer decision to initiate steroids to GI.
-Patient wanting to try more solid food, defer to surgery/GI
2. Severe proctocolitis
-With untreated Crohn's concern of GI source
-bacterial culture ordered
-MRI pelvis report as above showing
-s/p Rectal exam under anesthesia, flexible sigmoidoscopy and insertion of seton drains x5 on 06/30
-ID evaluated and changed abx from cipro/flagyl to unasyn.
3. Presumed Psoriasis vs other CD related skin condition
-Presuming on clinical exam with dry scaly rash
-non pruritic in nature
-Patient CD makes patient prone to get psoriasis also Infliximab therapy can paradoxical activation of psoriatic lesions
-Should follow up with dermatology in office
4. Iron Def anemia
-Reported ferritin ~ 300 but SI saturation 8%
-Got 2 doses of Ferrlecit therapy. Hold dose today as will need blood.
-Patient hemoglobin down to 7, will provide 1 unit of blood transfusion.
5. Thrombocytosis
-hemoconcentration and chronic inflammatory state related
-maintain on dvt ppx at high risk with CD.
5. Metabolic alkalosis
-related to volume depletion presumably
-monitor post IV hydration
6. Hyponatremia
-fluctuating, monitor
7. Elevated AST
-monitor
8. Mod PCM
-Patient lost 80lbs in 2 years approx from diagnosis
-maintain on ensure with meal
DVTPPx- lovenox
Full code
case discussed with GI
Anticipated Discharge: 24 - 48 hours
Subjective/Interval History
-
Date of Service: July 02, 2024
Resting comfortably in bed
Having some perianal discomfort
No nausea vomiting
Stated feeling hungry but also not having perfect appetite at the same time
Objective Data
-
Labs:
Laboratory Results
07/02/24
05:47
WBC 5.9
Hgb 7.0 L
Hct 22.5 L
Plt Count 699 H
Sodium 131 L
Potassium 3.9
Chloride 98
Carbon Dioxide 30
BUN 6 L
Creatinine 0.7
Glucose 80
Calcium 7.1 L
Vital Signs:
Vital Signs
Temp Pulse Resp BP Pulse Ox
98.5 F 106 18 113/69 97
07/02/24 07:00 07/02/24 07:00 07/02/24 07:00 07/02/24 07:00 07/02/24 07:00
I&O
07/01/24 07/02/24 07/03/24
06:59 06:59 06:59
Intake Total 2860 / 2960 5960 / 5960
Output Total 180 / 180
Balance 2680 / 2780 5960 / 5960
Review of Systems
-
Respiratory: Reports No Symptoms
Cardiac: Reports No Symptoms
Abdomen/GI: Reports Abdominal Pain; Denies Nausea or Vomiting
Physical Exam
-
General: No Apparent Distress and Comfortable
HEENT: Negative Oxygen
GI: Soft, Nontender and Nondistended
Rectal: Other (Perianal inflammation, Seton drain in place)
Musculoskeletal: No Edema
Neuro: Awake, Alert, Oriented, No Motor Deficits and Nonfocal/Grossly Intact
Psych: Calm
--- NOTE | 2024-07-02 10:07 | W.PN.GI.CBS2 ---
Today's Communication / Plan
-
continue antibiotics
Assessment / Plan
-
The patient is a 28-year-old male with a past medical history significant for large bowel Crohn's disease with history of perirectal fistula previously on Remicade, iron deficiency anemia, who presents to the ER as directed by Dr. Hale from the GI
office due to severe iron deficiency anemia and suspected severe Crohn's flare. He has been off Remicade for over a year given difficulty with insurance. He has had ongoing GI symptoms including up to 10-20 bowel movements a day, with intermittent
streaks of blood but primarily with fecal incontinence and inability to control his anal sphincter. He also has intermittent malodorous drainage likely secondary to perirectal fistula. S/p 1 unit of PRBC hgb improved 7.3-->7.8.
06/30/24: Fevers overnight up to 101.9. CRS evaluation requested.
Problem list:
-Crohn's colitis flare with prior perianal fistula, Off biologics
-severe microcytic anemia
-hx JEMMA
-hypoalbuminemia
-weight loss
-elevated platelets
-Vitamin D deficiency
Recommendations
-continue antibiotics
- advance diet as tolerated
- no steroids for now
should be f/u as outpatient for crohns treatment
Subjective
Subjective
Date of Service: July 02, 2024
Pt Resting comfortably on his side, s/p 5 seton drains yesterday in OR
Objective
Data Reviewed
Laboratory Data:
Laboratory Results
07/02/24 05:47
07/02/24 05:47
Laboratory Results
PT 15.7 Sec (11.4-14.6) H 06/30/24 20:35
INR 1.27 06/30/24 20:35
APTT 46.4 Sec (23.4-35.0) H 06/30/24 20:35
Phosphorus 4.2 mg/dl (2.5-4.5) 06/30/24 20:35
Magnesium 2.0 mg/dl (1.6-2.3) 06/30/24 20:35
Total Bilirubin 0.2 mg/dl (0.2-1.3) 06/29/24 13:55
AST 14 U/L (17-59) L 06/29/24 13:55
ALT 12 U/L (0-50) 06/29/24 13:55
Alkaline Phosphatase 109 U/L (38-126) 06/29/24 13:55
Vital Signs and I&O:
Vital Signs
Temp Pulse Resp BP Pulse Ox
98.5 F 106 18 113/69 97
07/02/24 07:00 07/02/24 07:00 07/02/24 07:00 07/02/24 07:00 07/02/24 07:00
I&O
07/01/24 07/02/24 07/03/24
06:59 06:59 06:59
Intake Total 2860 / 2960 5960 / 5960
Output Total 180 / 180
Balance 2680 / 2780 5960 / 5960
Physical Exam
Physical Exam
HEENT: Anicteric
Neuro: Non Focal
[2024-07-02] MEDS: LR 1000 IV (10:26)
--- NOTE | 2024-07-02 10:36 | W.PN.ID1 ---
Date of Service
Date of Service: July 02, 2024
Today's Communication
Continue antibiotics.
Assessment / Plan
Crohn's disease; Severe
Multiple perianal/perirectal fistulous tracts; status post OR and drains placement
Diarrhea secondary to above
Protein calorie malnutrition
Anemia
Recommendations:
Continue Unasyn 3 g IV every 6 hours.
Monitor white count and temperature curve.
Possible transition to Augmentin in the next 24-48 hours.
����������������������������������������������������������
Chief Complaint
-: Other (Crohn's disease; perirectal fistulas)
Subjective / Review of Systems
Patient seen and examined. Reports no significant complaints today. Pain controlled.
Vital Signs / Physical Exam
Vital Signs
Vital Signs
Temp Pulse Resp BP Pulse Ox
98.5 F 106 18 113/69 97
07/02/24 07:00 07/02/24 07:00 07/02/24 07:00 07/02/24 07:00 07/02/24 07:00
Physical Exam
Constitutional: No Acute Distress, Comfortable and Non-toxic
Eyes: Sclera Anicteric
Cardiovascular: S1/S2; Negative S3/S4
Pulmonary: Non Labored
Gastrointestinal: Soft, Non Tender and Non Distended
Extremities: Edema (Left hand; mild); Negative Cyanosis or Erythema
Neurological: Awake and Alert
Psychological: Calm
Objective Data
Lab Data
Lab Results
07/02/24 05:47
07/02/24 05:47
PT 15.7 Sec (11.4-14.6) H 06/30/24 20:35
INR 1.27 06/30/24 20:35
APTT 46.4 Sec (23.4-35.0) H 06/30/24 20:35
Estimated Creat Clear > 125 ml/min 07/02/24 05:47
Total Bilirubin 0.2 mg/dl (0.2-1.3) 06/29/24 13:55
AST 14 U/L (17-59) L 06/29/24 13:55
ALT 12 U/L (0-50) 06/29/24 13:55
Alkaline Phosphatase 109 U/L (38-126) 06/29/24 13:55
Most recent labs reviewed.
Micro Results:
06/30/24 08:33 Blood Culture - Preliminary
Blood/Venous No Growth in 48 hours- Final report to follow
06/29/24 22:40 Blood Culture - Preliminary
Blood/Venous No Growth in 48 hours- Final report to follow
06/29/24 16:18 Salmonella/Shigella Culture - Final
Feces/Stool No Salmonella, Shigella, Aeromonas or Plesiomonas species
isolated.
Campylobacter Culture - Final
No Campylobacter species isolated.
Shiga Toxin Test - Pending
Stool Leukocytes - Final
06/29/24 16:18 C. difficile GDH Antigen & Toxins - Final
Feces/Stool Negative for toxigenic C.difficile
Imaging:
06/30/2024 Pelvic MRI with contrast: Very severe inflammatory proctocolitis in the setting of Crohn's disease. There is significant perianal soft tissue inflammation and enhancement, with extensive perianal fistulous disease, with numerous active
fistula tracts. Please see full dictation for additional detail.
Care Review
Plan reviewed with: Physician (Hospitalist)
[2024-07-02 13:28] VITALS: BP 122/77
[2024-07-02 13:49] VITALS: BP 137/79
[2024-07-02 15:05] VITALS: BP 118/71
--- NOTE | 2024-07-02 15:28 | PTCARENOTE ---
Patient and patient's family wanted an update and explanation of plan of care. RN reviewed plan of care, regular diet, sitz bath, wound care and blood transfusion.
--- NOTE | 2024-07-02 15:31 | PTCARENOTE ---
Patient OOB with supervision. Patient voiding in bathroom, incontinent of loose stool-attends on. Sitz bath set up in bathroom for patient-explained/demonstrated use of sitz bath.
--- NOTE | 2024-07-02 15:50 | CM ---
Patient seen at bedside. ID prescription for home IV antibiotics reviewed with patient and . CM to send referral to [facility] and await call back with cost. CM will continue to follow for discharge planning needs.
Plan; home with IV antibiotics; await cost estimate.
[2024-07-02 16:05] VITALS: BP 119/73
[2024-07-02] MEDS: LOVENOX 40 MG SC (16:07)
[2024-07-02 23:00] VITALS: BP 119/76
[2024-07-03] MEDS: UNASYN IV (04:10)
[2024-07-03 07:47] VITALS: BP 118/74
[2024-07-03 08:06] LABS: Hematocrit 25.1 % (39.0-52.0); Hemoglobin 7.8 g/dL (13.0-18.0); Mean Corp Hgb Conc. 31.1 g/dL (33.0-37.0); Mean Corpuscular Hgb 23.6 pg (27.0-31.0); Mean Corpuscular Volume 75.8 fL (80.0-94.0); Mean Platelet Volume 7.8 fL (7.4-10.4); Platelet Count 600 10^3/uL (130-400); Red Blood Cell Count 3.31 10^6/uL (4.70-6.10); White Blood Cell Count 4.1 10^3/uL (4.8-10.8)
--- NOTE | 2024-07-03 08:10 | W.PN.GI.CBS2 ---
Today's Communication / Plan
-
continue IV antibiotics
Assessment / Plan
-
The patient is a 28-year-old male with a past medical history significant for large bowel Crohn's disease with history of perirectal fistula previously on Remicade, iron deficiency anemia, who presents to the ER as directed by Dr. Hale from the GI
office due to severe iron deficiency anemia and suspected severe Crohn's flare. He has been off Remicade for over a year given difficulty with insurance. He has had ongoing GI symptoms including up to 10-20 bowel movements a day, with intermittent
streaks of blood but primarily with fecal incontinence and inability to control his anal sphincter. He also has intermittent malodorous drainage likely secondary to perirectal fistula. S/p 1 unit of PRBC hgb improved 7.3-->7.8.
06/30/24: Fevers overnight up to 101.9. CRS evaluation requested.
Problem list:
-Crohn's colitis flare with prior perianal fistula, Off biologics
-severe microcytic anemia
-hx JEMMA
-hypoalbuminemia
-weight loss
-elevated platelets
-Vitamin D deficiency
Recommendations
-continue antibiotics
- on diet
- no steroids for now
should be f/u as outpatient for crohns treatment
Subjective
Subjective
Date of Service: July 03, 2024
Pt w/o abd pain, eating.
does have perianal discomfort and issue with sitting
Objective
Data Reviewed
Laboratory Data:
Laboratory Results
07/03/24 07:26
Laboratory Results
PT 15.7 Sec (11.4-14.6) H 06/30/24 20:35
INR 1.27 06/30/24 20:35
APTT 46.4 Sec (23.4-35.0) H 06/30/24 20:35
Phosphorus 4.2 mg/dl (2.5-4.5) 06/30/24 20:35
Magnesium 2.0 mg/dl (1.6-2.3) 06/30/24 20:35
Total Bilirubin 0.2 mg/dl (0.2-1.3) 06/29/24 13:55
AST 14 U/L (17-59) L 06/29/24 13:55
ALT 12 U/L (0-50) 06/29/24 13:55
Alkaline Phosphatase 109 U/L (38-126) 06/29/24 13:55
Vital Signs and I&O:
Vital Signs
Temp Pulse Resp BP Pulse Ox
98 F 94 16 118/74 97
07/03/24 07:47 07/03/24 07:47 07/03/24 07:47 07/03/24 07:47 07/03/24 07:47
I&O
07/02/24 07/03/24 07/04/24
06:59 06:59 06:59
Intake Total 5960 / 5960 3280 / 3280
Balance 5960 / 5960 3280 / 3280
Physical Exam
Physical Exam
HEENT: Anicteric
GI: Soft and Non Distended
[2024-07-03 08:42] LABS: Blood Urea Nitrogen 3 mg/dl (9-20); Calcium 7.2 mg/dl (8.4-10.2); Carbon Dioxide 34 mmol/L (22-30); Chloride 100 mmol/L (98-107); Estimated Creatinine Clearance > 125 ml/min; Glucose 73 mg/dl (70-99); Potassium 3.7 mmol/L (3.5-5.1); Sodium 137 mmol/L (135-145); eGFR > 60.00
--- NOTE | 2024-07-03 09:41 | W.PN.CRS1 ---
Today's Communication / Plan
-
as below
Assessment/Plan
-
28-year-old male with PMH of Crohn's (large bowel and perianal; was on Remicade, but has been off for the last year due to insurance issues), JEMMA who was sent from the GI office for concern of abdominal pain and nausea/vomiting. His WBC was 5.8, he
was afebrile, initially tachycardic. A pelvic MRI was done showing severe proctocolitis with multiple perianal fistulas, no abscess.
POD 3 EUA, seton placement x 5, perianal inflammation with ulcerations noted; severe proctocolitis up to the length surveyed on flex sig, which was the distal sigmoid
AFVSS
WBC 4.1 from 5.9, Hb 7.8 from 7.0
� Crohn's disease, off maintenance medication due to insurance; with severe proctocolitis and severe perianal fistulizing disease
� Stool studies/cdiff negative; no abscess or purulence noted on exam; infectious process less likely
� Sent for CRP; with severe proctocolitis, would recommend starting steroids and restarting his Remicade; defer to GI for final recommendations
� Due to surrounding perianal erythema, agree with IV Zosyn concurrently for possible component of cellulitis; appreciate ID
� Okay for regular diet
� Pain control with Tylenol and tramadol
� Continue DVT PPx with Lovenox
� Appreciate hospitalist
Subjective Data
Subjective Data
Date of Service: July 03, 2024
No overnight events.
Pain controlled.
Denies nausea/vomiting. Tolerating diet.
+flatus +BMs (having liquid BM every 1-2 hours, nonbloody; having fecal incontinence, but states it is his baseline for the last 2 years) +voiding
Pt is OOB.
Objective Data
-
Vital Signs
Temp Pulse Resp BP Pulse Ox
98 F 94 16 118/74 97
07/03/24 07:47 07/03/24 07:47 07/03/24 07:47 07/03/24 07:47 07/03/24 07:47
Intake & Output
07/02/24 07/03/24 07/04/24
06:59 06:59 06:59
Intake Total 5960 / 5960 3280 / 3280
Balance 5960 / 5960 3280 / 3280
Intake:
Oral fluids 2730 / 2730 1200 / 1200
IV fluids (Total) 2650 / 2650 1100 / 1100
Lr 1,000 ml @ 100 mls/hr IV . 450 / 450
Q10H [facility] Rx#:[id number]
IV piggybacks 580 / 580 480 / 480
Blood products 250 / 250
Blood Product Amount Infused ( 250 / 250
mL)
Packed Rbc Leukoreduced Unit 250 / 250
[id number]
Other:
Number of approximated MODERATE 4 3
amounts of urine
Number of approximated LARGE 1
amounts of urine
Number of unmeasured liquid
stools
Rectum 1 1
Lab Results
07/03/24 07:26
07/03/24 07:26
Physical Exam
-
General: No Acute Distress and AOx3
HEENT: Grossly Normal
Abdomen: Soft, Non Distended and Non Tender
Rectal: Other (Severe chronic changes in the perianal region with cobblestoning of the skin, setons in place, no purulent drainage; blanching erythema that seems slightly improved since the OR)
Skin: Warm and Dry
--- NOTE | 2024-07-03 09:43 | W.PN.ID1 ---
Date of Service
Date of Service: July 03, 2024
Today's Communication
Transition to Augmentin.
Assessment / Plan
Crohn's disease; Severe
Multiple perianal/perirectal fistulous tracts; status post OR and drains placement
Diarrhea secondary to above
Protein calorie malnutrition
Anemia
Recommendations:
Spoke with Colorectal surgery. Minimal to no purulence was noted at the time of drain placement.
Transition to Augmentin 875 mg p.o. twice daily for an additional 5 days.
Monitor white count and temperature curve.
����������������������������������������������������������
Chief Complaint
-: Other (Crohn's disease; perirectal fistulas)
Subjective / Review of Systems
Patient seen and examined. Reports minimal perirectal pain.
Review of Systems: No Fever and No Chills
Vital Signs / Physical Exam
Vital Signs
Vital Signs
Temp Pulse Resp BP Pulse Ox
98 F 94 16 118/74 97
07/03/24 07:47 07/03/24 07:47 07/03/24 07:47 07/03/24 07:47 07/03/24 07:47
Physical Exam
Constitutional: No Acute Distress, Comfortable and Non-toxic
Eyes: Sclera Anicteric
Cardiovascular: S1/S2; Negative S3/S4
Pulmonary: Non Labored
Gastrointestinal: Soft, Non Tender and Non Distended
Extremities: Edema (Left hand; mild); Negative Cyanosis or Erythema
Neurological: Awake and Alert
Psychological: Calm
Objective Data
Lab Data
Lab Results
07/03/24 07:26
07/03/24 07:26
PT 15.7 Sec (11.4-14.6) H 06/30/24 20:35
INR 1.27 06/30/24 20:35
APTT 46.4 Sec (23.4-35.0) H 06/30/24 20:35
Estimated Creat Clear > 125 ml/min 07/03/24 07:26
Total Bilirubin 0.2 mg/dl (0.2-1.3) 06/29/24 13:55
AST 14 U/L (17-59) L 06/29/24 13:55
ALT 12 U/L (0-50) 06/29/24 13:55
Alkaline Phosphatase 109 U/L (38-126) 06/29/24 13:55
Most recent labs reviewed.
Micro Results:
06/30/24 08:33 Blood Culture - Preliminary
Blood/Venous No Growth in 72 hours- Final report to follow
06/29/24 22:40 Blood Culture - Preliminary
Blood/Venous No Growth in 72 hours- Final report to follow
06/29/24 16:18 Salmonella/Shigella Culture - Final
Feces/Stool No Salmonella, Shigella, Aeromonas or Plesiomonas species
isolated.
Campylobacter Culture - Final
No Campylobacter species isolated.
Shiga Toxin Test - Pending
Stool Leukocytes - Final
06/29/24 16:18 C. difficile GDH Antigen & Toxins - Final
Feces/Stool Negative for toxigenic C.difficile
Imaging:
06/30/2024 Pelvic MRI with contrast: Very severe inflammatory proctocolitis in the setting of Crohn's disease. There is significant perianal soft tissue inflammation and enhancement, with extensive perianal fistulous disease, with numerous active
fistula tracts. Please see full dictation for additional detail.
--- NOTE | 2024-07-03 10:29 | W.PN.HOSP.TC ---
Today's Communication/Plan
-
appreciate consultants recs
po abx
monitor cbc
start dispo
Assessment / Plan
Assessment / Plan
MRI pelvis
Very severe inflammatory proctocolitis in the setting of Crohn's disease. Significant perianal soft tissue inflammation and enhancement with extensive perianal fistulous disease with numerous active fistula tracts that appear to be both
transsphincteric and intersphincteric in location with extension of multiple tracts into the perineal and bilateral gluteal soft tissues.

1. Crohn's disease flare up
-Dx in and have been on Remicade in past, currently off of it for last 8mos due to insurance issues
-currently complaining having 10-20 BM/day with some blood
-C-diff neg. stool culture report neg.
-Discussed with GI, holding steroids for now. Will defer decision to initiate steroids to GI. Per GI, no steroids for now. OP f/u recommended.
-Tolerating solids
2. Severe proctocolitis
-With untreated Crohn's concern of GI source
-bacterial culture ordered
-MRI pelvis report as above showing
-s/p Rectal exam under anesthesia, flexible sigmoidoscopy and insertion of seton drains x5 on 06/30
-ID evaluated and changed abx from cipro/flagyl to unasyn and now on augmentin x 5 days.
3. Presumed Psoriasis vs other CD related skin condition
-Presuming on clinical exam with dry scaly rash
-non pruritic in nature
-Patient CD makes patient prone to get psoriasis also Infliximab therapy can paradoxical activation of psoriatic lesions
-Should follow up with dermatology in office
4. Iron Def anemia
-Reported ferritin ~ 300 but SI saturation 8%
-Got 2 doses of Ferrlecit therapy.
-Patient hemoglobin down to 7.8 s/p 2u of PRBC.
5. Thrombocytosis
-hemoconcentration and chronic inflammatory state related
-maintain on dvt ppx at high risk with CD.
5. Metabolic alkalosis
-related to volume depletion presumably
-monitor post IV hydration
6. Hyponatremia
-fluctuating, monitor
7. Elevated AST
-monitor
8. Mod PCM
-Patient lost 80lbs in 2 years approx from diagnosis
-maintain on ensure with meal
DVTPPx- lovenox
Full code
Anticipated Discharge: Within 24 hours
Subjective/Interval History
-
Date of Service: July 03, 2024
Tolerating diet
some rectal discomfort
Objective Data
-
Labs:
Laboratory Results
07/03/24
07:26
WBC 4.1 L
Hgb 7.8 L
Hct 25.1 L
Plt Count 600 H
Sodium 137
Potassium 3.7
Chloride 100
Carbon Dioxide 34 H
BUN 3 L
Creatinine 0.6 L
Glucose 73
Calcium 7.2 L
Vital Signs:
Vital Signs
Temp Pulse Resp BP Pulse Ox
98 F 94 16 118/74 97
07/03/24 07:47 07/03/24 07:47 07/03/24 07:47 07/03/24 07:47 07/03/24 07:47
I&O
07/02/24 07/03/24 07/04/24
06:59 06:59 06:59
Intake Total 5960 / 5960 3280 / 3280
Balance 5960 / 5960 3280 / 3280
Physical Exam
-
General: No Apparent Distress and Comfortable
HEENT: Negative Oxygen
GI: Soft, Nontender and Nondistended
Rectal: Other ( Seton drain in place)
Musculoskeletal: No Edema
Neuro: Awake, Alert, Oriented, No Motor Deficits and Nonfocal/Grossly Intact
Psych: Calm
--- NOTE | 2024-07-03 11:39 | PN.CDI ---
CDI
- -
CDI:
Physician Documentation Request
Admit Date: 06/29/24 15:58
Dear Doctor Louann,
Clinical Indicators:
Patient admitted with Crohn's disease flare.
07/01 ID consulted.
Antibiotics ordered: Cipro/Flagyl, Unasyn; transitioned to Augmentin x 5 days.
07/03 CRS PN, 'Stool studies/cdiff negative; no abscess or purulence noted on exam; infectious process less likely.'
07/03, PN,'Severe proctocolitis'
If possible, please provide additional specificity regarding the type of proctocolitis/antibiotic use:
Non-infectious; empiric antibiotics only
Infectious
Other - please specify
Use of terms such as suspected, likely, concern for, or probable (associated with a specific diagnosis that is being evaluated, monitored, or treated as if it exists) are acceptable and can be coded in the inpatient setting, when documented at the
time of discharge.
Thank you,
ANDREW Mathew RN
CDI Specialist
available via tiger text
Please use your independent medical judgment in providing your response.
[2024-07-03] MEDS: SOLU-MEDROL PF 40 MG IV ×2 (12:34→17:46)
[2024-07-03] MEDS: OMNIPAQUE 50 ML PO (13:10)
[2024-07-03] MEDS: FERRLECIT 110 MG IV (14:18)
--- NOTE | 2024-07-03 15:10 | CM ---
CM following rte: discharge planning.
Reviewed pt's chart.
Per ID, Transition to Augmentin p.o. for 5 days.
D/C plan: home with family. Family to transport at discharge.
CM will follow with discharge plan updates as needed.
[2024-07-03 16:07] VITALS: BP 124/86
[2024-07-03] MEDS: LOVENOX 40 MG SC (17:45)
[2024-07-03] MEDS: AUGMENTIN 875 MG/125 MG 1 TABLET PO (19:44)
[2024-07-03 23:58] VITALS: BP 117/73
[2024-07-04] MEDS: SOLU-MEDROL PF 40 MG IV ×5 (00:07→23:40)
[2024-07-04 06:24] LABS: Hemoglobin 8.7 g/dL (13.0-18.0); Mean Corp Hgb Conc. 31.1 g/dL (33.0-37.0); Mean Corpuscular Hgb 24.1 pg (27.0-31.0); Mean Corpuscular Volume 77.6 fL (80.0-94.0); Mean Platelet Volume 7.9 fL (7.4-10.4); Platelet Count 579 10^3/uL (130-400); Red Blood Cell Count 3.61 10^6/uL (4.70-6.10); Red Cell Dist. Width 19.2 % (11.5-14.5); White Blood Cell Count 5.4 10^3/uL (4.8-10.8)
[2024-07-04 06:44] LABS: Blood Urea Nitrogen 4 mg/dl (9-20); Calcium 7.5 mg/dl (8.4-10.2); Carbon Dioxide 34 mmol/L (22-30); Chloride 100 mmol/L (98-107); Estimated Creatinine Clearance > 125 ml/min; Glucose 137 mg/dl (70-99); Potassium 4.3 mmol/L (3.5-5.1); Sodium 138 mmol/L (135-145); eGFR > 60.00
[2024-07-04 07:00] VITALS: BP 111/72
[2024-07-04] MEDS: AUGMENTIN 875 MG/125 MG 1 TABLET PO ×2 (08:23→19:37)
--- NOTE | 2024-07-04 09:03 | W.PN.GI.CBS2 ---
Today's Communication / Plan
-
C/w IV steroids
C/w oral abx
Coordinating care for infusion of infliximab for possibly tomorrow
Will follow with you
Assessment / Plan
-
The patient is a 28-year-old male with a past medical history significant for large bowel Crohn's disease with history of perirectal fistula previously on Remicade, iron deficiency anemia, who presents to the ER as directed by Dr. Hale from the GI
office due to severe iron deficiency anemia and suspected severe Crohn's flare. He has been off Remicade for over a year given difficulty with insurance. He has had ongoing GI symptoms including up to 10-20 bowel movements a day, with intermittent
streaks of blood but primarily with fecal incontinence and inability to control his anal sphincter. He also has intermittent malodorous drainage likely secondary to perirectal fistula. S/p 1 unit of PRBC hgb improved 7.3-->7.8.
06/30/24: Fevers overnight up to 101.9. CRS evaluation requested.
Problem list:
-Crohn's colitis flare with prior perianal fistula, Off biologics
-severe microcytic anemia
-hx JEMMA
-hypoalbuminemia
-weight loss
-elevated platelets
-Vitamin D deficiency
Recommendations
- Case d/w colorectal surgery and given fistulas draining ok to start IV steroid 07/03
- Hbg uptrending
- C/w IV solumedrol. Anticipate oral pred taper transition tomorrow
- Will anticipate to infuse infliximab day of hosp d/c at my GI office. Awaiting coordination with insurance
- C/w regular diet
- Monitor stool output
- Appreciate colorectal surgery and ID recs
- To complete course of augmentin
Will follow with you. Anticipate d/c tomorrow from GI perspective.
Total Time Spent with Patient (in minutes): 55 mins with patient and coordinating care/paperwork for infusion
Subjective
Subjective
Date of Service: July 04, 2024
He tolerated regular diet for dinner last night. Continues to report diarrhea. Not keeping close track of number or volume. Denies abd pain
Objective
Data Reviewed
Laboratory Data:
Laboratory Results
07/04/24 05:33
07/04/24 05:33
Laboratory Results
PT 15.7 Sec (11.4-14.6) H 06/30/24 20:35
INR 1.27 06/30/24 20:35
APTT 46.4 Sec (23.4-35.0) H 06/30/24 20:35
Phosphorus 4.2 mg/dl (2.5-4.5) 06/30/24 20:35
Magnesium 2.0 mg/dl (1.6-2.3) 06/30/24 20:35
Total Bilirubin 0.2 mg/dl (0.2-1.3) 06/29/24 13:55
AST 14 U/L (17-59) L 06/29/24 13:55
ALT 12 U/L (0-50) 06/29/24 13:55
Alkaline Phosphatase 109 U/L (38-126) 06/29/24 13:55
Vital Signs and I&O:
Vital Signs
Temp Pulse Resp BP Pulse Ox
97.1 F 77 18 111/72 97
07/04/24 07:00 07/04/24 07:00 07/04/24 07:00 07/04/24 07:00 07/04/24 07:00
I&O
07/03/24 07/04/24 07/05/24
06:59 06:59 06:59
Intake Total 3280 / 3280 2780 / 2780
Balance 3280 / 3280 2780 / 2780
Physical Exam
Physical Exam
GEN: No acute distress, conversant, pleasant
HEENT: anicteric, extraocular movements intact, clear oropharynx without exudates
GI: soft, thin non-distended, not tender to palpation, normal active bowel sounds, no hepatosplenomegaly
EXT: warm, well perfused, trace edema bilaterally
NEURO: AAOx3, non-focal
--- NOTE | 2024-07-04 10:30 | W.PN.CRS1 ---
Today's Communication / Plan
-
Continue diet
Continue with Crohn's management per GI
Assessment/Plan
-
28-year-old male with PMH of Crohn's (large bowel and perianal; was on Remicade, but has been off for the last year due to insurance issues), JEMMA who was sent from the GI office for concern of abdominal pain and nausea/vomiting. His WBC was 5.8, he
was afebrile, initially tachycardic. A pelvic MRI was done showing severe proctocolitis with multiple perianal fistulas, no abscess.
POD 4 EUA, seton placement x 5, perianal inflammation with ulcerations noted; severe proctocolitis up to the length surveyed on flex sig, which was the distal sigmoid
AFVSS
WBC 5.4
� Crohn's disease, off maintenance medication due to insurance; with severe proctocolitis and severe perianal fistulizing disease
� Stool studies/cdiff negative; no abscess or purulence noted on exam; infectious process less likely
� Daily CRP; with severe proctocolitis, would recommend starting steroids and restarting his Remicade; defer to GI for final recommendations
� Due to surrounding perianal erythema, agree with IV Zosyn concurrently for possible component of cellulitis; appreciate ID
�Continue regular diet
� Pain control with Tylenol and tramadol
� Continue DVT PPx with Lovenox
� Appreciate hospitalist
Subjective Data
Procedure
06/30/2024- Rectal exam under anesthesia, flexible sigmoidoscopy and insertion of seton drains (5)
Subjective Data
Date of Service: July 04, 2024
Patient states he feels 'pretty good'. He has had no pain in his abdomen. He states he has some discomfort in his rectal area. He is still having loose stools which is unchanged.
Objective Data
-
Vital Signs
Temp Pulse Resp BP Pulse Ox
97.1 F 77 18 111/72 97
07/04/24 07:00 07/04/24 07:00 07/04/24 07:00 07/04/24 07:00 07/04/24 07:00
Intake & Output
07/03/24 07/04/24 07/05/24
06:59 06:59 06:59
Intake Total 3280 / 3280 2780 / 2780
Balance 3280 / 3280 2780 / 2780
Intake:
Oral fluids 1200 / 1200 2640 / 2640
IV fluids (Total) 1100 / 1100 30 / 30
IV piggybacks 480 / 480 110 / 110
Blood products 250 / 250
Blood Product Amount Infused ( 250 / 250
mL)
Packed Rbc Leukoreduced Unit 250 / 250
[id number]
Other:
Number of approximated MODERATE 3 4
amounts of urine
Number of unmeasured liquid
stools
Rectum 1 6
Lab Results
07/04/24 05:33
07/04/24 05:33
Physical Exam
-
General: No Acute Distress and AOx3
Abdomen: Soft, Non Distended and Non Tender
Skin: Warm and Dry
--- NOTE | 2024-07-04 11:05 | W.PN.HOSP.TC ---
Today's Communication/Plan
-
Possible DC in morning
Continue antibiotic
Continue with steroids
GI recs
Assessment / Plan
Assessment / Plan
MRI pelvis
Very severe inflammatory proctocolitis in the setting of Crohn's disease. Significant perianal soft tissue inflammation and enhancement with extensive perianal fistulous disease with numerous active fistula tracts that appear to be both
transsphincteric and intersphincteric in location with extension of multiple tracts into the perineal and bilateral gluteal soft tissues.

1. Crohn's disease flare up
-Dx in and have been on Remicade in past, currently off of it for last 8mos due to insurance issues
-currently complaining having 10-20 BM/day with some blood
-C-diff neg. stool culture report neg.
-Started on high-dose Solu-Medrol with plan for prednisone taper on discharge. GI coordinating for IV Infliximab
-Tolerating solids
2. Severe proctocolitis s/p multiple perianal/Alejandro rectal fistulous tract status post overlying drain placement with possible component of cellulitis
-With untreated Crohn's concern of GI source
-bacterial culture ordered
-MRI pelvis report as above showing
-s/p Rectal exam under anesthesia, flexible sigmoidoscopy and insertion of seton drains x5 on 06/30
-ID evaluated and changed abx from cipro/flagyl to unasyn and now on augmentin x 5 days.
3. Presumed Psoriasis vs other CD related skin condition
-Presuming on clinical exam with dry scaly rash
-non pruritic in nature
-Patient CD makes patient prone to get psoriasis also Infliximab therapy can paradoxical activation of psoriatic lesions
-Should follow up with dermatology in office
4. Iron Def anemia
-Reported ferritin ~ 300 but SI saturation 8%
-IV iron while here.
-Patient hemoglobin down to 8.7 s/p 2u of PRBC.
5. Thrombocytosis
-hemoconcentration and chronic inflammatory state related
-maintain on dvt ppx at high risk with CD.
5. Metabolic alkalosis
-related to volume depletion presumably
-monitor post IV hydration
6. Hyponatremia
-fluctuating, monitor
7. Elevated AST
-monitor
8. Mod PCM
-Patient lost 80lbs in 2 years approx from diagnosis
-maintain on ensure with meal
DVTPPx- lovenox
Full code
Anticipated Discharge: Within 24 hours
Subjective/Interval History
-
Date of Service: July 04, 2024
having loose stools
Objective Data
-
Labs:
Laboratory Results
07/04/24
05:33
WBC 5.4
Hgb 8.7 L
Hct 28.0 L
Plt Count 579 H
Sodium 138
Potassium 4.3
Chloride 100
Carbon Dioxide 34 H
BUN 4 L
Creatinine 0.6 L
Glucose 137 H
Calcium 7.5 L
Vital Signs:
Vital Signs
Temp Pulse Resp BP Pulse Ox
97.1 F 77 18 111/72 97
07/04/24 07:00 07/04/24 07:00 07/04/24 07:00 07/04/24 07:00 07/04/24 07:00
I&O
07/03/24 07/04/24 07/05/24
06:59 06:59 06:59
Intake Total 3280 / 3280 2780 / 2780
Balance 3280 / 3280 2780 / 2780
Physical Exam
-
General: No Apparent Distress and Comfortable
HEENT: Negative Oxygen
GI: Soft, Nontender and Nondistended
Rectal: Other ( Seton drain in place)
Musculoskeletal: No Edema
Neuro: Awake, Alert, Oriented, No Motor Deficits and Nonfocal/Grossly Intact
Psych: Calm
--- NOTE | 2024-07-04 11:46 | PTCARENOTE ---
pt requesting to go over CT test results. Pt also now open to meeting with a iron worker. Dr. Lew notified of requests.
--- NOTE | 2024-07-04 13:03 | W.PN.ID1 ---
Date of Service
Date of Service: July 04, 2024
Today's Communication
Contineu abx.
Assessment / Plan
Crohn's disease; Severe
Multiple perianal/perirectal fistulous tracts; status post OR and drains placement
Diarrhea secondary to above
Protein calorie malnutrition
Anemia
Recommendations:
Continue Augmentin 875 mg p.o. twice daily for an additional 4 days.
Monitor white count and temperature curve.
����������������������������������������������������������
Chief Complaint
-: Other (Crohn's disease; perirectal fistulas)
Subjective / Review of Systems
Patient seen and examined. Denies complaints at present. No difficulty with antibiotics.
Review of Systems: No Fever, No Chills and No Abdominal Pain
Vital Signs / Physical Exam
Vital Signs
Vital Signs
Temp Pulse Resp BP Pulse Ox
97.1 F 77 18 111/72 97
07/04/24 07:00 07/04/24 07:00 07/04/24 07:00 07/04/24 07:00 07/04/24 07:00
Physical Exam
Constitutional: No Acute Distress and Comfortable
Eyes: Sclera Anicteric
Cardiovascular: S1/S2; Negative S3/S4
Pulmonary: Non Labored
Gastrointestinal: Soft, Non Tender and Non Distended
Extremities: Edema (Left hand; mild); Negative Cyanosis or Erythema
Neurological: Awake and Alert
Psychological: Calm
Objective Data
Lab Data
Lab Results
07/04/24 05:33
07/04/24 05:33
PT 15.7 Sec (11.4-14.6) H 06/30/24 20:35
INR 1.27 06/30/24 20:35
APTT 46.4 Sec (23.4-35.0) H 06/30/24 20:35
Estimated Creat Clear > 125 ml/min 07/04/24 05:33
Total Bilirubin 0.2 mg/dl (0.2-1.3) 06/29/24 13:55
AST 14 U/L (17-59) L 06/29/24 13:55
ALT 12 U/L (0-50) 06/29/24 13:55
Alkaline Phosphatase 109 U/L (38-126) 06/29/24 13:55
C-Reactive Protein 66.90 mg/L (0.0-10.00) H 07/04/24 05:33
Most recent labs reviewed.
Micro Results:
06/30/24 08:33 Blood Culture - Preliminary
Blood/Venous No Growth in 4 days- Final report to follow
06/29/24 22:40 Blood Culture - Preliminary
Blood/Venous No Growth in 4 days- Final report to follow
06/29/24 16:18 Salmonella/Shigella Culture - Final
Feces/Stool No Salmonella, Shigella, Aeromonas or Plesiomonas species
isolated.
Campylobacter Culture - Final
No Campylobacter species isolated.
Shiga Toxin Test - Final
No E. coli Shiga Toxin 1 or 2 detected.
Stool Leukocytes - Final
06/29/24 16:18 C. difficile GDH Antigen & Toxins - Final
Feces/Stool Negative for toxigenic C.difficile
Imaging:
06/30/2024 Pelvic MRI with contrast: Very severe inflammatory proctocolitis in the setting of Crohn's disease. There is significant perianal soft tissue inflammation and enhancement, with extensive perianal fistulous disease, with numerous active
fistula tracts. Please see full dictation for additional detail.
[2024-07-04] MEDS: FERRLECIT 110 MG IV (13:28)
[2024-07-04 14:54] VITALS: BMI 20.5
[2024-07-04 15:00] VITALS: BP 125/81
--- NOTE | 2024-07-04 15:38 | CM ---
CM following re: discharge planning.
Reviewed pt's chart.
Per ID, continue Augmentin for 4 days
D/C plan: home with family. Family to transport at discharge.
CM will follow with discharge plan updates as needed.
[2024-07-04] MEDS: LOVENOX 40 MG SC (17:14)
[2024-07-04 20:17] LABS: Calprotectin, Fecal 2560 ug/g (<=49)
[2024-07-04 23:49] VITALS: BP 114/75
[2024-07-05] MEDS: SOLU-MEDROL PF 40 MG IV (05:59)
[2024-07-05 07:50] VITALS: BP 125/86
[2024-07-05] MEDS: AUGMENTIN 875 MG/125 MG 1 TABLET PO (08:05)
--- NOTE | 2024-07-05 08:09 | W.PN.GI.CBS2 ---
Addendum entered and electronically signed by Joellen Hess Do, MD 07/05/24 13:14:
I saw and examined the patient.
The RESOURCE SPECIALIST TEACHER's note was reviewed and I agree with the note.
Comment: Irvin feels improved. Care coordinated for him to get outpatient dose of remicade in our GI office at 11am after hosp d/c today. Vitals stable. NTTP, NABS. Labs reviewed. He will use pred taper orally at home. Plan to FU with me in 2wks.
In future given low albumin of 2 will ask insurance to increase home remicade infusion to every 4 wks at 10mg/kg. All questions answered. OK for hosp d/c today
Original Note:
Today's Communication / Plan
-
pt feeling better, hbg stable 8.7 no fever or WBC elevation
I confirmed with [facility] - medication to be delivered today for patient as patient has given consent to release medication and office set up for appt
pt agreeable to premed - Tylenol, Benadryl, Claritin, and steroids as needed as required with risk of reaction with prior infusions
I sent message to Dr. Lew and Dr. Hendrix to confirm clearance for discharge today and review medications
on discharge transition to Prednisone 60mg daily and taper weekly by 10mg
add PPI while on steroid taper
add calcium and vitamin D daily
cont abx per medical team
regular diet as tolerated
Pt set up for remicade infusion today at 11 AM
I spoke with -- no questions and agreeable for plan
updated nursing staff
set up 07/20 at 12:30 with Jen Fox /Joellen Almaguer MD for GI office follow up
Assessment / Plan
-
The patient is a 28-year-old male with a past medical history significant for large bowel Crohn's disease with history of perirectal fistula previously on Remicade, iron deficiency anemia, who presents to the ER as directed by Dr. Hale from the GI
office due to severe iron deficiency anemia and suspected severe Crohn's flare. He has been off Remicade for over a year given difficulty with insurance. He has had ongoing GI symptoms including up to 10-20 bowel movements a day, with intermittent
streaks of blood but primarily with fecal incontinence and inability to control his anal sphincter. He also has intermittent malodorous drainage likely secondary to perirectal fistula.
06/30 EUA, seton placement x 5, perianal inflammation with ulcerations noted; severe proctocolitis up to the length surveyed on flex sig, which was the distal sigmoid
s/p 2 units and IV iron given during admission
Problem list:
-Crohn's colitis flare with prior perianal fistula, Off biologics
-severe microcytic anemia
-hx JEMMA
-hypoalbuminemia
-weight loss
-elevated platelets
-Vitamin D deficiency
Recommendations
pt feeling better, hbg stable 8.7 no fever or WBC elevation
I confirmed with [facility] - medication to be delivered today for patient as patient has given consent to release medication and office set up for appt
pt agreeable to premed - Tylenol, Benadryl, Claritin, and steroids as needed as required with risk of reaction with prior infusions
I sent message to Dr. Lew and Dr. Hendrix to confirm clearance for discharge today and review medications
on discharge transition to Prednisone 60mg daily and taper weekly by 10mg
add PPI while on steroid taper
add calcium and vitamin D daily
cont abx per medical team
regular diet as tolerated
Pt set up for remicade infusion today at 11 AM
I spoke with -- no questions and agreeable for plan
updated nursing staff
set up 07/20 at 12:30 with Jen Fox /Joellen Almaguer MD for GI office follow up
Subjective
Subjective
Date of Service: July 05, 2024
still with rectal drainage and multiple stools on regular diet
Objective
Data Reviewed
Laboratory Data:
Laboratory Results
07/04/24 05:33
07/04/24 05:33
Laboratory Results
PT 15.7 Sec (11.4-14.6) H 06/30/24 20:35
INR 1.27 06/30/24 20:35
APTT 46.4 Sec (23.4-35.0) H 06/30/24 20:35
Phosphorus 4.2 mg/dl (2.5-4.5) 06/30/24 20:35
Magnesium 2.0 mg/dl (1.6-2.3) 06/30/24 20:35
Total Bilirubin 0.2 mg/dl (0.2-1.3) 06/29/24 13:55
AST 14 U/L (17-59) L 06/29/24 13:55
ALT 12 U/L (0-50) 06/29/24 13:55
Alkaline Phosphatase 109 U/L (38-126) 06/29/24 13:55
Vital Signs and I&O:
Vital Signs
Temp Pulse Resp BP Pulse Ox
99.3 F 60 18 114/75 97
07/04/24 23:49 07/04/24 23:49 07/04/24 23:49 07/04/24 23:49 07/04/24 23:49
I&O
07/04/24 07/05/24 07/06/24
06:59 06:59 06:59
Intake Total 2780 / 2780 960 / 960
Balance 2780 / 2780 960 / 960
Physical Exam
Physical Exam
HEENT: Anicteric and Moist mucous membranes
Cardiology: Normal Sinus Rhythm
Pulmonary: Clear
GI: Soft, Non Distended and Tender
Extremities: No Edema
Neuro: Non Focal
--- NOTE | 2024-07-05 08:34 | W.PN.HOSP.TC ---
Addendum entered and electronically signed by Tin Lew MD 07/17/24 14:53:
sepsis-poa 2/2 Severe proctocolitis s/p multiple perianal/Alejandro rectal fistulous tract status post overlying drain placement with possible component of cellulitis
Original Note:
Today's Communication/Plan
-
dc to infusion center
Assessment / Plan
Assessment / Plan
MRI pelvis
Very severe inflammatory proctocolitis in the setting of Crohn's disease. Significant perianal soft tissue inflammation and enhancement with extensive perianal fistulous disease with numerous active fistula tracts that appear to be both
transsphincteric and intersphincteric in location with extension of multiple tracts into the perineal and bilateral gluteal soft tissues.

1. Crohn's disease flare up
-Dx in and have been on Remicade in past, currently off of it for last 8mos due to insurance issues
-currently complaining having 10-20 BM/day with some blood
-C-diff neg. stool culture report neg.
-Started on high-dose Solu-Medrol with plan for prednisone taper on discharge. starting at 60mg with weekly taper. PPI added. Vit D added. GI coordinating for IV Infliximab later today.
-Tolerating solids
2. Severe proctocolitis s/p multiple perianal/Alejandro rectal fistulous tract status post overlying drain placement with possible component of cellulitis
-With untreated Crohn's concern of GI source
-MRI pelvis report as above showing
-s/p Rectal exam under anesthesia, flexible sigmoidoscopy and insertion of seton drains x5 on 06/30
-ID evaluated and changed abx from cipro/flagyl to unasyn and now on augmentin to complete course.
3. Presumed Psoriasis vs other CD related skin condition
-Presuming on clinical exam with dry scaly rash
-non pruritic in nature
-Patient CD makes patient prone to get psoriasis also Infliximab therapy can paradoxical activation of psoriatic lesions
-Should follow up with dermatology in office
4. Iron Def anemia
-Reported ferritin ~ 300 but SI saturation 8%
-IV iron while here.
-Patient hemoglobin. s/p 2u of PRBC.
5. Thrombocytosis
-hemoconcentration and chronic inflammatory state related
-maintain on dvt ppx at high risk with CD.
5. Metabolic alkalosis
-related to volume depletion presumably
-monitor post IV hydration
6. Hyponatremia
-fluctuating, monitor
7. Elevated AST
-monitor
8. Mod PCM
-Patient lost 80lbs in 2 years approx from diagnosis
-maintain on ensure with meal
DVTPPx- lovenox
Full code
dw with GI and CRS
More than 30 minutes spent in discharge including
Final examination of the patient
Summarizing hospital stay
Instructions for continuing care to all relevant caregivers
Preparation of discharge records, prescriptions, and referral forms
Total time spent (in minutes): 54
Anticipated Discharge: Today
Subjective/Interval History
-
Date of Service: July 05, 2024
tolerating diet
Objective Data
-
Vital Signs:
Vital Signs
Temp Pulse Resp BP Pulse Ox
97.7 F 85 16 125/86 100
07/05/24 07:50 07/05/24 07:50 07/05/24 07:50 07/05/24 07:50 07/05/24 07:50
I&O
07/04/24 07/05/24 07/06/24
06:59 06:59 06:59
Intake Total 2780 / 2780 960 / 960
Balance 2780 / 2780 960 / 960
Physical Exam
-
General: No Apparent Distress and Comfortable
HEENT: Negative Oxygen
GI: Soft, Nontender and Nondistended
Musculoskeletal: No Edema
Neuro: Awake, Alert, Oriented, No Motor Deficits and Nonfocal/Grossly Intact
Psych: Calm
--- NOTE | 2024-07-05 08:38 | W.DCSUMMARY ---
Discharge Summary
Discharge Data
Date of Admission: 06/29/24
Date of Discharge: 07/05/24
-
Pending Results: No
Hospital Course
28-year-old male past medical history of Crohn's disease, anemia was presented with a complaint of multiple bowel movements a day. Upon admission gastroenterology infectious disease and colorectal surgery was consulted. Patient was started on
antibiotics per infectious disease. Stool studies were sent and found to be negative. Patient was initially hypotensive once admitted to medical ICU and then eventually downgraded. Blood pressure remained stable. Did not require pressors.
Patient underwent MRI of the pelvis which showed Very severe inflammatory proctocolitis in the setting of Crohn's disease. Significant perianal soft tissue inflammation and enhancement with extensive perianal fistulous disease with numerous active
fistula tracts that appear to be both transsphincteric and intersphincteric in location with extension of multiple tracts into the perineal and bilateral gluteal soft tissues. Rectal exam under anesthesia, flexible sigmoidoscopy and insertion of
multiple seton drains (x 5). Antibiotic was de-escalated and was then transition to p.o. Augmentin. Patient will repeat CT abdomen pelvis with persistent colitis. Gastroenterology started patient on high-dose of Solu-Medrol 40 mg Q6. Patient
with improvement in rectal pain. Was tolerating diet. Patient will be transition to p.o. prolonged prednisone taper 60 mg with weekly taper 10 mg down. Patient subsequently be discharged on the hospital and will be going directly to GI infusion
center for infliximab. Also found to have anemia and received iron transfusion. Did receive 1 unit of PRBC. Patient was recommended to follow-up outpatient with gastroenterology.
Discharge Plan
-
Patient Disposition: Home (Routine Discharge)
Discharge Diagnosis/Procedures: Crohn's disease flareup
Severe proctocolitis status post multiple perianal/perirectal fistula tract status post drain placement with possible component of cellulitis
Presumed psoriasis versus other skin related condition
Iron deficiency anemia
Thrombocytosis
Metabolic alkalosis
Hyponatremia
Elevated AST
Condition: Fair
Diet: Regular and Other diet
Additional Diets: add oral supplement twice a day to keep good nutrition, can change to low fiber and low lactose for increased stools
Activity: As tolerated
Driving Restrictions: As prior to admission
Blood Work: check CBC, BMP, CRP and ESR on 07/18 prior to to office follow up 07/20 with Jen Pennington
Activity Restrictions/Additional Instructions:
Recommend to make appointment with dermatology for skin rash
prednisone 60mg daily with weekly taper (reduce by 10mg weekly)
Instructions: How to Do a Sitz Bath
Referrals:
Luca Diaz MD [Active] - in two weeks
Jen Pennington CRNP [Specified Professional Personl] - 07/20/24 12:30 pm
(Follow up with Jen Caceres Do. Please call to reschedule if you can not keep this appointment. If your insurance requires a referral please contact your primary care physician prior to your appointment.
call with any other issues or problems prior to discharge )
Jeferson Mccormack MD [Non-Admitting Privileges] - None
UNKNOWN - PT DOES,NOT KNOW [Family Provider] - in less than 1 week
Additional Discharge Medication Instructions: Sitz baths twice a day for a week. Warm water, 10 minutes.
Prescriptions:
New
amoxicillin-pot clavulanate 875-125 mg Tablet
1 tab PO Q12 Qty: 5 0RF
pantoprazole [Protonix] 40 mg tablet,delayed release (DR/EC)
40 mg PO DAILY Qty: 30 0RF
prednisone 10 mg Tablet
See Rx Instructions .ROUTE .COMPLEX Qty: 147 0RF
Rx Instructions:
Take By Mouth:
60 mg daily x7 days, 50 mg daily x7 days,
40 mg daily x7 days, 30 mg daily x7 days,
20 mg daily x7 days, 10mg daily x7 days
cholecalciferol (vitamin D3) [Vitamin D3] 25 mcg (1,000 unit) capsule
25 mcg PO DAILY Qty: 30 0RF
Continued
ferrous sulfate 325 mg (65 mg iron) Tablet
325 mg PO DAILY
cyanocobalamin (vitamin B-12) tablet
1 tab PO DAILY
Patient Comments:
06/29/24: Patient states he has been taking for the past 3 days, will stop taking it now.
Discharge Orders:
Discharge Patient (As Directed); Ordered 07/05/24
Ordered By: Tin Lew
Discharge Date and Time
Discharge Date/Time: 07/05/24 10:58
Print Language: BHUTANESE
--- NOTE | 2024-07-05 10:49 | CM ---
Patient seen at bedside.
Reviewed role of CM.
Discharge today to home.
No needs identified.
PLAN: Discharge to home.
to transport.
--- NOTE | 2024-07-12 07:59 | PN.CDI ---
CDI
- -
CDI:
Physician Documentation Request
Admit Date: 06/29/24 15:58
Dear Doctor Louann,
Clinical Indicators:
The diagnosis of sepsis was documented on 06/30, but is not consistently noted in subsequent documentation.
06/30 PN, 'Fever episode -With untreated Crohn's concern of GI source...-maintain on empiric cipro and flagyl'
06/30 CRS consult, 'I explained the goal of surgery is to control sepsis in hopes of maintaining his rectum.'
Temp on admission:
06/29/24
21:31
Temp 101.9 F H
HR trend on admission:
06/29/24
13:18 06/29/24
14:00 06/29/24
15:00
Pulse 111 105 101
06/29/24
16:00 06/29/24
17:13
Pulse 109 119
Please clarify the following:
Sepsis was present on admission
Sepsis was ruled out
Other,please specify
Use of terms such as suspected, likely, concern for, or probable (associated with a specific diagnosis that is being evaluated, monitored, or treated as if it exists) are acceptable and can be coded in the inpatient setting, when documented at the
time of discharge.
Thank you,
Elmira Anaya RN BSN
CDI Specialist
available via tiger text
Please use your independent medical judgment in providing your response.
== END 2024-07-05 10:58 | disposition home or self-care (01) | DRG 854 ==
LOC: 2 NORTH 15:58
PROVIDERS: Nurse Practitioner Family; Physician Assistant; Student in an Organized Health Care Education/Training Program; Surgery; ADMITTING PHYSICIAN Hospitalist; ATTENDING PHYSICIAN Hospitalist; CONSULT PHYSICIAN Internal Medicine Critical Care Medicine; CONSULT PHYSICIAN Internal Medicine Infectious Disease; EMERGENCY PHYSICIAN Emergency Medicine; OTHER PHYSICIAN Specialist; OTHER PHYSICIAN Surgery
PROC: 0D9Q80Z Drainage of Anus with Drainage Device, Via Natural or Artificial Opening Endoscopic (ICD-10-PCS; 2024-06-30)
DX: A41.9 Sepsis, unspecified organism (principal); E44.0 Moderate protein-calorie malnutrition; K50.113 Crohn's disease of large intestine with fistula; E87.1 Hypo-osmolality and hyponatremia; E87.3 Alkalosis; K50.111 Crohn's disease of large intestine with rectal bleeding; D50.9 Iron deficiency anemia, unspecified; E88.09 Other disorders of plasma-protein metabolism, not elsewhere classified; D75.839 Thrombocytosis, unspecified; K62.89 Other specified diseases of anus and rectum; E55.9 Vitamin D deficiency, unspecified; L40.9 Psoriasis, unspecified; R74.01 Elevation of levels of liver transaminase levels; I95.81 Postprocedural hypotension; Z68.20 Body mass index [BMI] 20.0-20.9, adult; Z80.0 Family history of malignant neoplasm of digestive organs
CPT/HCPCS: 71045; 72197; 74177; 80048; 80053; 81003; 83735; 83993; 84100; 85025; 85027; 85610; 85730; 86140; 86850; 86900; 86901; 86920; 87040; 87045; 87046; 87324; 87427; 87449; 89055; 93005; 94660; 99284; A9575; C1894; J2916; P9016; Q9967

== ENCOUNTER 2025-02-07 06:07 | Day surgery (SDC) | payer OTHER, SELFPAY ==
[2025-02-07] VITALS (8 sets, daily range): BP systolic 104–120; BP diastolic 48–79; BMI 24.9
[2025-02-07] MEDS: TYLENOL 1000 MG PO (11:05)
[2025-02-07] MEDS: NORMOSOL-R/PLASMALYTE-A 1000 IV (11:11)
== END 2025-02-07 18:00 | disposition home or self-care (01) ==
LOC: SDS 06:07
PROVIDERS: ATTENDING PHYSICIAN Surgery
DX: K50.10 Crohn's disease of large intestine without complications (principal); K61.0 Anal abscess
CPT/HCPCS: 46060; 88304; J1335

== ENCOUNTER 2025-02-09 13:40 | Inpatient (IN) | payer OTHER, SELFPAY ==
[2025-02-08] VITALS (8 sets, daily range): BP systolic 101–129; BP diastolic 52–70; BMI 24.5
--- NOTE | 2025-02-08 16:59 | ED.GENMED ---
History of Present Illness
General
Chief Complaint: Post Operative Problem(s)
Source: patient
Exam Limitations: none
Time Seen by Provider: 02/08/25 16:52
History of Present Illness
History of Present Illness:
See MDM
Past History
Past History
ED Past Medical History: Other (Crohns)
ED Past Surgical History: None
Social History
Tobacco: Non-smoker
Alcohol: None
Phy Exam
Physical Exam
Physical Exam:
See MDM
Course
Orders/Labs/Results
Orders:
Orders
02/08/25 16:58
Complete Blood Count/With Diff Urgent
Comprehensive Metabolic Panel Urgent
02/08/25 17:21
Consult Colorectal Surgery [ColoRectal Surgery Consult] Routine
Consulting Provider: Favian Mckeon
Was physician already notified: Yes
02/08/25 17:33
Admit/Transfer Patient As Directed
Co-Sign Provider:
Level of Care: Observation services
Assign to:: Medical/Surgical
Physician / Group: Jayla Bear
Diagnosis: post operative hemorrhage
02/08/25 17:34
Code Status As Directed
Resuscitation Status: Full Code
PRN Pain Medication Management As Directed
May give lesser potent ordered pain med per pt: Yes
preference::
Protocol:: Medication orders for pain may be administered in a
manner that supports deferring to patient preference
when the pt is:
- Requesting an ordered lesser potent pain medication.
Least to most potent pain medications are defined
as: acetaminophen < NSAID < tramadol < opioids
(morphine, oxycodone, hydromorphone).
- Requesting a lesser dose of the same medication IF
ORDERED.
- Requesting a less intrusive route of administration
if both routes are prescribed by the provider (PO <
IV).
Abnormal Lab Results
02/08/25
16:58
WBC 16.1 H 10^3/uL
(4.8-10.8)
RBC 4.01 L 10^6/uL
(4.70-6.10)
Hgb 9.1 L g/dL
(13.0-18.0)
Hct 29.9 L %
(39.0-52.0)
MCV 74.6 L fL
(80.0-94.0)
MCH 22.7 L pg
(27.0-31.0)
MCHC 30.4 L g/dL
(33.0-37.0)
RDW 18.6 H %
(11.5-14.5)
Plt Count 723 H 10^3/uL
(130-400)
Abs Immat Gran (auto) 0.1 H 10^3/uL
(0-0.05)
Absolute Neuts (auto) 13.1 H 10^3/uL
(1.4-6.5)
Absolute Monos (auto) 1.4 H 10^3/uL
(0.1-0.6)
Neutrophils % 81.8 H %
(42.2-75.2)
Lymphocytes % 8.8 L %
(20.5-51.1)
02/08/25 16:58
02/08/25 16:58
Vital Signs
Initial and Last Documented VS:
Initial Vital Signs
BP
129/70
02/08/25 16:36
Last Documented Vital Signs
Temp Pulse Resp BP Pulse Ox
97.5 F 92 22 115/62 99
02/08/25 16:43 02/08/25 19:15 02/08/25 19:15 02/08/25 19:00 02/08/25 19:15
MDM/Problems Addressed
Differential Diagnosis Includes:
HPI and MDM Narrative:
29-year-old male presenting for evaluation of postsurgical bleeding. Patient has Crohn's disease and has a chronic anal fistula. He has required surgery for his anal fistula in the past. He had surgery yesterday to clean the area and to drain the
area due to multiple abscesses. He called the office indicating uncontrolled bleeding from the surgical site today. By the time patient arrived to the emergency department, all bleeding appears to have resolved.
Will contact colorectal team and ultimately admit
Physical exam
General: Well appearing and non-toxic
HEENT: protecting airway
Neck: appears supple
CV: No evidence of cyanosis
Resp: No accessory muscle use
Abd: Non-distended
Rectal: Incision site at perirectal region is clean and intact. No obvious bleeding
Extremities: No deformities
Neuro: alert
Psych: Normal affect
Skin: Intact
Problems Addressed including Acute and Chronic Conditions affecting care:
1. Postsurgical bleeding
Acuity: acute
Prognosis: stable
Details: Discussed case with colorectal surgery. Will admit
Differential Diagnosis (but not limited to): Postsurgical bleeding, anemia
Testing considered: CT abdomen/pelvis
Drug therapy (if applicable): OTC meds, please see d/c instruction regarding Rx drugs
Amount and/or Complexity of Data Reviewed
Clinical info obtained from: Patient
External data reviewed: Recent I&D of abscesses in his chronic rectal fistula
Labs I independently reviewed (but not limited to): Leukocytosis, anemia
Radiology: N/A
Pulse Ox: not hypoxic
EKG independently reviewed: N/A
Lacquer Spray Booth Operator: N/A
Critical Care: N/A
Risk of Complication:
Social Determinants of health: Good social support
Discussed with other providers: Hospitalist, colorectal surgeon
Escalation of Care includes Admit/Obs: Given the persistent bleeding, will admit for hemoglobin trending and colorectal evaluation
Occasional wrong word or 'sound a like' substitutions may have occurred due to the inherent limitations of voice recognition software. Read the chart carefully and recognize, using context, where substitutions have occurred.
*Critical Care Note
Total Time (30-74mins, 75-104mins- exclusive of procedures): Not Applicable
ED Attending Note
-
Portions of this chart may have been created with voice recognition software.� Occasional wrong word or��sound alike� substitutions may have occurred due to the inherent limitations of voice recognition software.
Discharge Plan
Departure
Patient Disposition: Admit
Date of Disposition: 02/08/25
Time of Disposition: 17:10
Admit to: Med/Surg
Presentation/result/management discussed w/ accepting MD/DO: Hospitalist
Discharge Problem:
Post-operative hemorrhage
Interventions
Interventions:
*General Assessment Last Done: 02/08/25 16:34
*Neglect/Abuse Screening Last Done: 02/08/25 19:30
*ED- Fall Risk Assessment Last Done: 02/08/25 16:34
ED-Skin Assessment Last Done: 02/08/25 16:55
--- NOTE | 2025-02-08 17:16 | HPS.HSE ---
Family Physician
-
Family Physician: NOT KNOW UNKNOWN - PT DOES
Chief Complaint
-
post operative bleeding
History of Present Illness
Patient is a 29-year old male with past medical history significant for Crohn's disease who presented to [facility] ED for evaluation of post operative bleeding. Patient with chronic anal fistula. He has required surgery for anal fistula in the past.
Yesterday patient had surgery to clean area and drain multiple abscesses. Patient was experiencing uncontrollable bleeding from site today, he called colorectal office to report and was sent to ED for evaluation. Bleeding resolved prior to arrival
to ED.
Medical History
Past Medical History
Past Medical History: Reports Other
Additional Past Medical History:
Crohn's disease
Past Surgical History: Reports Other
Additional Past Surgical History:
wisdom teeth extraction
seton drain placement x5
debridement, I&D of multiple abscesses of perianal region
Social History
Tobacco: Non-smoker
Alcohol: Occasional
Drug: None
Personal:
Living: With Family
Employment: Employed
Family History
Family History: Not pertinent
Allergies / Home Medications
Allergies reflects when Allergies were last updated in [employer].
Home Medications with original date entered in [employer]
Allergy/Medication List:
Allergies
Allergy/AdvReac Type Severity Reaction Status Date / Time
No Known Allergies Allergy Verified 02/08/25 16:42
Home Medications
infliximab 100 mg intravenous solution (Remicade) 0 mg IV Q4W 02/02/25
oxycodone 5 mg tablet 5 mg PO Q6HPRN PRN severe pain 02/08/25
Review of Systems
-
History Source: Patient
Constitutional: Reports No Symptoms
EENT: Reports No Symptoms
Respiratory: Reports No Symptoms
Cardiac: Reports No Symptoms
Abdomen/GI: Reports Other (post operative bleeding from perianal area )
: Reports No Symptoms
Musculoskeletal: Reports No Symptoms
Skin: Reports No Symptoms
Neurological: Reports No Symptoms
Endocrine: Reports No Symptoms
Hematologic/Lymphatic: Reports No Symptoms
Psych: Reports No Symptoms
Physical Exam
Vital Signs
Vital Signs
Temp Pulse Resp BP Pulse Ox
97.5 F 77 13 129/70 100
02/08/25 16:43 02/08/25 16:45 02/08/25 16:45 02/08/25 16:43 02/08/25 16:45
Physical Exam
General: Well Developed, Well Nourished, No Apparent Distress, Comfortable and Conversant
HEENT: NormoCephalic, Moist mucous membranes, Atraumatic, [place] Conjunctivae, Nose Appears Normal and Ears Appear Normal
Respiratory: Clear
Cardiac: S1/S2 and Regular Rhythm; No Murmur or Rub
Breast: Deferred by me
GI: Soft, Non Tender, Non Distended and Normal Bowel Sounds; No Organomegaly
Rectal: Other (Incision site at perirectal region is clean and intact. No obvious bleeding)
Genito-urinary: Deferred by me
Musculoskeletal: No Clubbing, No Cyanosis and No Edema
Skin: IV/Catheter Site
Neuro: Awake, Alert, AO x 3 and Nonfocal/grossly intact
Psych: Calm and Intact Judgment/Insight
Data Reviewed
-
Lab Data: Labs Reviewed by me
Impression/Plan
-
IMPRESSION/PLAN:
#post operative bleeding
s/p debridement, I&D of multiple abscesses of perianal region with seton placement
- Admit to med/surg
- monitor H/H
- Consult Colorectal
#Crohn's Disease
- continue Remicade out patient
Code status: full code
DVT prophylaxis: SCDs
[2025-02-08 17:29] LABS: ALT (SGPT) 14 U/L (0-50); AST (SGOT) 17 U/L (17-59); Alkaline Phosphatase 89 U/L (38-126); Blood Urea Nitrogen 11 mg/dl (9-20); Calcium 8.9 mg/dl (8.4-10.2); Carbon Dioxide 25 mmol/L (22-30); Chloride 102 mmol/L (98-107); Glucose 98 mg/dl (70-99); Potassium 4.6 mmol/L (3.5-5.1); Sodium 140 mmol/L (135-145); Total Bilirubin 0.4 mg/dl (0.2-1.3); Total Protein 7.9 g/dl (6.3-8.2); eGFR > 60.00
[2025-02-08 17:31] LABS: % Basophils 0.2 % (0-2); % Eosinophils 0.2 % (0-6); % Immature Granulocytes 0.5 % (0-0.5); % Lymphocytes 8.8 % (20.5-51.1); % Monocytes 8.5 % (1.7-9.3); % Neutrophils 81.8 % (42.2-75.2); Absolute Immature Granulocytes 0.1 10^3/uL (0-0.05); Absolute Lymphocytes 1.4 10^3/uL (1.2-3.4); Absolute Monocytes 1.4 10^3/uL (0.1-0.6); Absolute Neutrophils 13.1 10^3/uL (1.4-6.5); Hematocrit 29.9 % (39.0-52.0); Hemoglobin 9.1 g/dL (13.0-18.0); Mean Corp Hgb Conc. 30.4 g/dL (33.0-37.0); Mean Corpuscular Hgb 22.7 pg (27.0-31.0); Mean Corpuscular Volume 74.6 fL (80.0-94.0); Mean Platelet Volume 8.8 fL (7.4-10.4); Nucleated Red Blood Cells % 0 % (-); Platelet Count 723 10^3/uL (130-400); Red Blood Cell Count 4.01 10^6/uL (4.70-6.10); Red Cell Dist. Width 18.6 % (11.5-14.5); White Blood Cell Count 16.1 10^3/uL (4.8-10.8)
--- NOTE | 2025-02-08 17:51 | W.PN.UPDATE ---
Update Note
Progress Note Update
I saw and examined the patient.
The INFORMATION SYSTEMS PROFESSOR or PA's note was reviewed and I agree with the note.
Patient is pleasant 29 years old with history of Crohn's disease who came to the ER with postoperative bleeding.
Patient was chronically on fistula and had debridement, incision and drainage of multiple abscesses on the right perirectal area and insertion of seton drain.
Hemoglobin stable.
Bleeding subsided.
Will be admitted under hospitalist service.
Physical exam:
GENERAL : Patient is awake, alert, oriented x3
HEENT: Nonicteric sclerae, PERRLA, EOMI. Oropharynx clear. Moist mucous membranes. Conjunctivae appear well perfused.
CHEST: Chest wall is nontender.
HEART: Regular rate and rhythm without murmurs.
LUNGS: Clear to auscultation bilaterally.
ABDOMEN: Soft, positive bowel sounds, nontender, no organomegaly.
RECTAL: Deferred.
SKIN: No rash, no excessive bruising, petechiae, or purpura.
NEUROLOGIC: Cranial nerves II-XII intact without motor/sensory deficit.
Assessment/plan:
Monitor H&H.
Surgery consult.
[2025-02-08 23:17] LABS: Hematocrit 21.8 % (39.0-52.0); Hemoglobin 6.9 g/dL (13.0-18.0)
[2025-02-09 00:05] LABS: Hematocrit 21.6 % (39.0-52.0); Hemoglobin 6.7 g/dL (13.0-18.0)
[2025-02-09 02:01] VITALS: BP 105/55
[2025-02-09 02:17] VITALS: BP 104/59
[2025-02-09 04:07] VITALS: BP 105/53
[2025-02-09 06:00] VITALS: BMI 24.4
[2025-02-09 07:32] VITALS: BP 120/57
[2025-02-09 08:52] LABS: Hematocrit 23.3 % (39.0-52.0); Hemoglobin 7.4 g/dL (13.0-18.0); Mean Corp Hgb Conc. 31.8 g/dL (33.0-37.0); Mean Corpuscular Hgb 23.7 pg (27.0-31.0); Mean Corpuscular Volume 74.7 fL (80.0-94.0); Mean Platelet Volume 8.8 fL (7.4-10.4); Platelet Count 427 10^3/uL (130-400); Red Blood Cell Count 3.12 10^6/uL (4.70-6.10); Red Cell Dist. Width 18.8 % (11.5-14.5); White Blood Cell Count 8.4 10^3/uL (4.8-10.8)
[2025-02-09 11:49] LABS: Hemoglobin 7.8 g/dL (13.0-18.0)
--- NOTE | 2025-02-09 12:04 | CON.CRS ---
Consultation
-
Date/Time Consultation Requested: 02/08/2025, 17:21
Date/Time Consultation Performed: 02/09/2025, 08:30
Requesting Provider: Zeyad Mccormack DO
Performing Provider: Erick Hendrix MD
Reason for Consultation: post op anal bleeding
Medical History
-
Chief Complaint: anal bleeding
History of Present Illness:
29-year-old male with a history of Crohn's disease, who underwent a debridement, incision and drainage of multiple abscesses in the right perirectal area, and insertion of seton drain on 02/07/[address] Diaz, presents to [facility] complaining
of uncontrollable bleeding from his perianal incision. He states it started after he remove the packing from his wound yesterday. He called our office and was told by me to go to the ER. The patient stated that he filled multiple adult diapers
and it had soaked through his pants and bed sheets. On admission the bleeding had subsided. He was admitted with a hemoglobin of 6.7 and received 1 unit of packed red blood cells on admission. Patient states he no bleeding this morning. He
checked overnight, and it had slowed down. He is hungry. He has no real pain.
Past Medical History
Past Medical History: Other (Crohn's disease)
Past Surgical History: Other ([place] teeth, Debridement, incision and drainage of multiple abscesses on the right perirectal area and insertion of seton drain. (02/07/25))
Social History
Tobacco: Non-Smoker
Alcohol: Occasional
Drug: None
Family History
Family History: Reviewed & Not Pertinent
Allergies / Home Medications
Allergy/AdvReac Type Severity Reaction Status Date / Time
No Known Allergies Allergy Verified 02/08/25 16:42
�Medication �Instructions �Recorded �Confirmed �Type
infliximab 100 mg intravenous 0 mg IV Q4W 02/02/25 02/08/25 History
solution (Remicade)
oxycodone 5 mg tablet 5 mg PO Q6HPRN PRN severe pain 04/03/25 04/03/25 History
Review of Systems
-
History Source: Patient
: Bleeding
A 10 point review of systems was completed, and was negative except as per HPI.
Physical Exam
Vital Signs
Temp 97.9 F 02/09/25 07:32
Pulse 82 02/09/25 07:32
Resp Rate 17 02/09/25 07:32
Blood pressure 120/57 02/09/25 07:32
SaO2 98 02/09/25 07:32
02/08/25 02/09/25 02/10/25
06:59 06:59 06:59
Actual Weight 83.915 kg
Body Mass Index (BMI) 24.4
Lab Results / Allergies
02/09/25 11:32
02/08/25 16:58
WBC 8.4 10^3/uL (4.8-10.8) 02/09/25 07:27
Hgb 7.8 g/dL (13.0-18.0) L 02/09/25 11:32
Hct 24.0 % (39.0-52.0) L 02/09/25 11:32
Plt Count 427 10^3/uL (130-400) H D 02/09/25 07:27
Abs Immat Gran (auto) 0.1 10^3/uL (0-0.05) H 02/08/25 16:58
Neutrophils % 81.8 % (42.2-75.2) H 02/08/25 16:58
Allergy/AdvReac Type Severity Reaction Status Date / Time
No Known Allergies Allergy Verified 02/08/25 16:42
Physical Exam
General: Well Developed, Well Nourished and No Apparent Distress
GI: Soft, Non Tender and Non Distended
Rectal: Other (Large open wound, some hayes mucus as expected, no active bleeding, seton drain in place)
Skin: Warm and Dry
Neuro: AO x 3
Psych: Calm
Data Reviewed
-
Labs: Labs Reviewed by me, Discussed with Physician and Discussed with Patient
Old Records: Reviewed
Assessment / Plan
-
Assessment: 29-year-old male with a history of Crohn's disease who recently underwent debridement of his perianal abscess and seton drain placement presents to [facility] with bleeding from his wound, hemoglobin 6.7, received 1 unit packed red
blood cells
Plan:
- No plans for repeat surgery at this time
- Continue diet
- Would recommend monitoring hemoglobin in 24 hours prior to discharge
- Local wound care
--- NOTE | 2025-02-09 13:35 | W.PN.HOSP.TC ---
Today's Communication/Plan
-
Discharge home today if hemoglobin stay stable.
Assessment / Plan
Assessment / Plan
Patient is 29 years old with recent incision and drainage of multiple abscesses of perianal area came to the ER with postoperative bleeding, hemoglobin dropped required 1 unit of blood transfusion
Assessment/plan.
post operative bleeding
s/p debridement, I&D of multiple abscesses of perianal region with seton placement
Appreciate surgery input.
Monitoring H&H
Okay for discharge if hemoglobin
Acute blood loss anemia.
Status post blood transfusion
Crohn's Disease
continue Remicade out patient
CODE STATUS: Full code
DVT prophylaxis: SCDs
Diet: Regular diet
Total time spent on today's encounter was 40 minutes which included time spent in counseling the patient/family regarding diagnosis and treatment plan as listed above, goals of care, and symptom management. Case was discussed with nursing staff,
specialists, and care coordinators/case management. All labs and imaging personally reviewed by me. Remainder the time spent in detailed review of previous records, lab data, imaging, and other medical provider documentation.
Anticipated Discharge: Today
Subjective/Interval History
-
Date of Service: February 09, 2025
Patient seen and examined at bedside, denies any chest pain or shortness of breath, no abdominal pain, no nausea, no vomiting, no diarrhea or constipation.
Hemoglobin dropped last night required blood transfusion.
Hemoglobin stable, discussed with surgery, if continue to have stable hemoglobin okay for DC.
Objective Data
-
Labs:
Laboratory Results
02/09/25 02/09/25 02/09/25
07:27 11:32 17:00
WBC 8.4
Hgb 7.4 L 7.8 L Pending
Hct 23.3 L 24.0 L Pending
Plt Count 427 H D
Vital Signs:
Vital Signs
Temp Pulse Resp BP Pulse Ox
97.9 F 82 17 120/57 98
02/09/25 07:32 02/09/25 07:32 02/09/25 07:32 02/09/25 07:32 02/09/25 07:32
I&O
02/08/25 02/09/25 02/10/25
06:59 06:59 06:59
Intake Total 490 / 490
Balance 490 / 490
Physical Exam
-
General: Well Developed, Well Nourished, No Apparent Distress and Comfortable
HEENT: Normocephalic, Atraumatic, Moist Mucous Membranes, No Ptosis, PERRLA and Nose Appears Normal
Respiratory: Clear to Auscultation and Non Labored Respirations
Cardiac: Regular Rhythm and S1/S2
Breast: Deferred by me
GI: Soft, Nontender, Nondistended and Normal Bowel Sounds
Genito-urinary: No Costovertebral Tender
Musculoskeletal: No Clubbing, No Cyanosis and No Edema
Skin: Warm
Neuro: Awake, Alert, Oriented, AO x 3 and No Motor Deficits
Psych: Calm
Data Reviewed
-
Diagnostic Radiology: Image personally visualized and interpreted and Report Reviewed by me
CT Scan: Image personally visualized and interpreted and Report Reviewed by me
Ultrasound: Image personally visualized and interpreted and Report Reviewed by me
MRI: Image personally visualized and interpreted and Report Reviewed by me
Medical Tests (Nuc Med, Echo etc): Image personally visualized and interpreted and Report Reviewed by me
Labs: Labs Reviewed by me
Old Records: Reviewed
[2025-02-09 15:25] VITALS: BP 122/71
--- NOTE | 2025-02-09 16:32 | CM ---
Patient admitted under OBS, OBS completed and placed on chart, patient lives with his spouse and daughter in a condo, 14 steps to enter, patient is independent with adl's and ambulation, plan is for possible discharge to home, possibly tomorrow, no
needs.
PCP: Dr. Atkinson
Pharmacy: [facility].
Plan; Home when stable, no needs.
[2025-02-09 17:29] LABS: Hematocrit 25.3 % (39.0-52.0); Hemoglobin 7.9 g/dL (13.0-18.0)
[2025-02-09 23:20] VITALS: BP 126/75
[2025-02-10 08:16] LABS: Hematocrit 24.4 % (39.0-52.0); Hemoglobin 7.6 g/dL (13.0-18.0); Mean Corp Hgb Conc. 31.1 g/dL (33.0-37.0); Mean Corpuscular Hgb 23.4 pg (27.0-31.0); Mean Corpuscular Volume 75.1 fL (80.0-94.0); Mean Platelet Volume 8.6 fL (7.4-10.4); Platelet Count 434 10^3/uL (130-400); Red Blood Cell Count 3.25 10^6/uL (4.70-6.10); Red Cell Dist. Width 19.2 % (11.5-14.5); White Blood Cell Count 9.8 10^3/uL (4.8-10.8)
[2025-02-10 08:20] VITALS: BP 117/65
--- NOTE | 2025-02-10 11:29 | W.PN.HOSP.TC ---
Today's Communication/Plan
-
Repeat hemoglobin at noon and discharge home if stable.
Assessment / Plan
Assessment / Plan
Patient is 29 years old with recent incision and drainage of multiple abscesses of perianal area came to the ER with postoperative bleeding, hemoglobin dropped required 1 unit of blood transfusion
Globin remained stable, possible discharge home.
Assessment/plan.
post operative bleeding
s/p debridement, I&D of multiple abscesses of perianal region with seton placement
Appreciate surgery input.
Monitoring H&H
Okay for discharge if hemoglobin
Acute blood loss anemia.
Status post blood transfusion
Crohn's Disease
continue Remicade out patient
CODE STATUS: Full code
DVT prophylaxis: SCDs
Diet: Regular diet
Total time spent on today's encounter was 40 minutes which included time spent in counseling the patient/family regarding diagnosis and treatment plan as listed above, goals of care, and symptom management. Case was discussed with nursing staff,
specialists, and care coordinators/case management. All labs and imaging personally reviewed by me. Remainder the time spent in detailed review of previous records, lab data, imaging, and other medical provider documentation.
Anticipated Discharge: Today
Subjective/Interval History
-
Date of Service: February 10, 2025
Patient seen and examined at bedside, denies any chest pain or shortness of breath, no abdominal pain, no nausea, no vomiting, no diarrhea or constipation.
Globin 7.6, repeat pending.
Objective Data
-
Labs:
Laboratory Results
02/10/25 02/10/25
07:58 12:00
WBC 9.8
Hgb 7.6 L Pending
Hct 24.4 L Pending
Plt Count 434 H
Vital Signs:
Vital Signs
Temp Pulse Resp BP Pulse Ox
98.6 F 91 16 117/65 98
02/10/25 08:20 02/10/25 08:20 02/10/25 08:20 02/10/25 08:20 02/10/25 08:20
I&O
02/09/25 02/10/25 02/11/25
06:59 06:59 06:59
Intake Total 490 / 490 1200 / 1200
Balance 490 / 490 1200 / 1200
Physical Exam
-
General: Well Developed, Well Nourished, No Apparent Distress and Comfortable
HEENT: Normocephalic, Atraumatic, Moist Mucous Membranes, No Ptosis, PERRLA and Nose Appears Normal
Respiratory: Clear to Auscultation and Non Labored Respirations
Cardiac: Regular Rhythm and S1/S2
Breast: Deferred by me
GI: Soft, Nontender, Nondistended and Normal Bowel Sounds
Genito-urinary: No Costovertebral Tender
Musculoskeletal: No Clubbing, No Cyanosis and No Edema
Skin: Warm
Neuro: Awake, Alert, Oriented, AO x 3 and No Motor Deficits
Psych: Calm
Data Reviewed
-
Diagnostic Radiology: Image personally visualized and interpreted and Report Reviewed by me
CT Scan: Image personally visualized and interpreted and Report Reviewed by me
Ultrasound: Image personally visualized and interpreted and Report Reviewed by me
MRI: Image personally visualized and interpreted and Report Reviewed by me
Medical Tests (Nuc Med, Echo etc): Image personally visualized and interpreted and Report Reviewed by me
Labs: Labs Reviewed by me
Old Records: Reviewed
[2025-02-10 12:12] LABS: Hematocrit 25.1 % (39.0-52.0); Hemoglobin 7.8 g/dL (13.0-18.0)
--- NOTE | 2025-02-10 12:16 | W.DCSUMMARY ---
Discharge Summary
Discharge Data
Date of Admission: 02/08/25
Date of Discharge: 02/10/25
-
Pending Results: No
Hospital Course
Assessment / Plan
Patient is 29 years old with recent incision and drainage of multiple abscesses of perianal area came to the ER with postoperative bleeding, hemoglobin dropped required 1 unit of blood transfusion
Hemoglobin remained stable,
discharge home.
Assessment/plan.
post operative bleeding
s/p debridement, I&D of multiple abscesses of perianal region with seton placement
Appreciate surgery input.
Monitoring H&H
Okay for discharge if hemoglobin
Acute blood loss anemia.
Status post blood transfusion
Crohn's Disease
continue Remicade out patient
CODE STATUS: Full code
DVT prophylaxis: SCDs
Diet: Regular diet
Total time spent on today's encounter was 40 minutes which included time spent in counseling the patient/family regarding diagnosis and treatment plan as listed above, goals of care, and symptom management. Case was discussed with nursing staff,
specialists, and care coordinators/case management. All labs and imaging personally reviewed by me. Remainder the time spent in detailed review of previous records, lab data, imaging, and other medical provider documentation.
Anticipated Discharge: Today
Discharge Plan
-
Patient Disposition: Home (Routine Discharge)
Discharge Diagnosis/Procedures: Postoperative bleeding, acute blood loss anemia
Diet: As tolerated
Activity: As tolerated
Blood Work: Repeat CBC after 1 week
Referrals:
Favian Mckeon MD [Active] - in one week
UNKNOWN - PT DOES,NOT KNOW [Family Provider] -
Prescriptions:
New
(DME) cbc
See Rx Instructions .Route .MEDSUPPLY Qty: 1 0RF
Rx Instructions:
After 1 week.
Diagnosis: Acute blood loss anemia
Continued
infliximab [Remicade] 100 mg Recon Soln
0 mg IV Q4W
Patient Comments:
02/08/25: Patient unsure of current dose of Remicade
oxycodone 5 mg tablet
5 mg PO Q6HPRN PRN (Reason: severe pain)
Discharge Orders:
Discharge Patient (As Directed); Ordered 02/10/25
Ordered By: Jayla Bear
Discharge Date and Time
Print Language: THAI
--- NOTE | 2025-02-10 13:32 | W.PN.CRS1 ---
Today's Communication / Plan
-
dispo planning
Assessment/Plan
-
28-year-old male with PMH of Crohn's presenting for bleeding post procedure pod #3 Debridement, incision and drainage of multiple abscesses on the right perirectal area and insertion of seton drain.
AFVSS
H/H stable.
� Continue regular diet
-- Local wound care
� Pain control prn
� Continue DVT PPx with Lovenox
� Appreciate hospitalist
Ok for d/c from surgical standpoint with close OP follow up
Subjective Data
Subjective Data
Date of Service: February 10, 2025
Objective Data
-
Vital Signs
Temp Pulse Resp BP Pulse Ox
98.6 F 91 16 117/65 98
02/10/25 08:20 02/10/25 08:20 02/10/25 08:20 02/10/25 08:20 02/10/25 08:20
Intake & Output
02/09/25 02/10/25 02/11/25
06:59 06:59 06:59
Intake Total 490 / 490 1200 / 1200
Balance 490 / 490 1200 / 1200
Intake:
Oral fluids 240 / 240 1200 / 1200
Blood Product Amount Infused ( 250 / 250
mL)
Packed Rbc Leukoreduced Unit 250 / 250
[id number]
Other:
Number of approximated MODERATE 3 3
amounts of urine
Number of unmeasured liquid
stools
Rectum 1
Lab Results
02/10/25 11:58
02/08/25 16:58
Physical Exam
-
General: No Acute Distress and AOx3
Abdomen: Soft, Non Distended and Non Tender
Rectal: Other (Large open wound to right of rectum with some hayes mucus as expected, no active bleeding, seton drain in place)
Skin: Warm and Dry
[2025-02-10 14:04] VITALS: BP 122/75
== END 2025-02-10 15:34 | disposition home or self-care (01) | DRG 920 ==
LOC: 4 WEST ACU 13:40
PROVIDERS: Nurse Practitioner Family; ADMITTING PHYSICIAN General Practice; EMERGENCY PHYSICIAN Student in an Organized Health Care Education/Training Program; OTHER PHYSICIAN Surgery
PROC: 30233N1 Transfusion of Nonautologous Red Blood Cells into Peripheral Vein, Percutaneous Approach (ICD-10-PCS; 2025-02-09)
DX: L76.22 Postprocedural hemorrhage of skin and subcutaneous tissue following other procedure (principal); D62 Acute posthemorrhagic anemia; K50.913 Crohn's disease, unspecified, with fistula; K50.911 Crohn's disease, unspecified, with rectal bleeding; K60.5 Anorectal fistula; Y83.8 Other surgical procedures as the cause of abnormal reaction of the patient, or of later complication, without mention of misadventure at the time of the procedure
CPT/HCPCS: 80053; 85014; 85018; 85025; 85027; 86850; 86900; 86901; 86920; 87070; 99285; G0378; P9016

== ENCOUNTER 2025-04-10 06:21 | Day surgery (SDC) | payer OTHER, SELFPAY | END 2025-04-10 15:30 | disposition home or self-care (01) | LOC: GI 06:21 | PROVIDERS: ATTENDING PHYSICIAN Internal Medicine Gastroenterology | DX: K50.113 Crohn's disease of large intestine with fistula (principal); K64.8 Other hemorrhoids; K62.6 Ulcer of anus and rectum | CPT/HCPCS: 45380; 88305 ==